=== PATIENT | male | born 1955 | race Caucasian/White ===

== ENCOUNTER 2024-07-25 11:56 | Outpatient (AMB) | payer MEDICARE, MEDICAID, SELFPAY ==
--- NOTE | 2024-07-25 12:05 | AM.OFFWIN_ITS ---
Intake Vital Signs 07/25/24 12:09 Height 5 ft 3 in Weight 230 lb BMI 40.7 BP 132/70 Blood Pressure Location Rt brachial Position Sitting Pulse 80 Pulse Source Pulse Oximeter Temp 98.2 F Temp Source Temporal Artery Scan Pulse Oximetry (%) 97 Intake Visit Reasons: [employer] cellulitis LT leg/ little RT Intake Note: pt is here for cellulitis in left leg and a possibly on right leg too. Patient Tobacco Use Status: Never used Tobacco Allergies olive extract [OLIVE] Allergy (Unknown, Verified 07/25/24 12:06) SWELLING OF TONGUE Do you need a note to return to daycare/school/sports/work: No HPI HPI Comments History of Present Illness Details 60-year-old male that presents for blake rn of cellulitis. Patient was diagnosed with cellulitis at a clinic with treating the health on his lower extremities and prescribed doxycycline b.i.d. times 10 days. He reports minimal improvement still endorses redness on the shins bilaterally in swelling of the lower extremities. Does have a history of some venous insufficiency. Denies fevers or chills PFSH Social History Patient Tobacco Use Status: Never used Tobacco Physical Exam Vital Signs: Last Vital Signs Temp 98.2 F 07/25/24 12:09 Pulse 80 07/25/24 12:09 BP 132/70 07/25/24 12:09 Pulse Ox 97 07/25/24 12:09 BMI result Body Mass Index 40.7 Const General: cooperative, healthy appearing, no acute distress and alert Orientation/consciousness: patient oriented x3 Limitations: no limitations HEENT Head: Yes normal to inspection Ears: hearing grossly normal bilaterally General nose exam: Normal external nose present Resp Effort & Inspection: normal respiratory effort and able to speak in complete sentences Cardio Rate: regular rate Skin General skin exam: no rashes or lesions noted Neuro General: patient oriented x3 Extrem Other: Bilateral pitting edema in the extremities. Erythema on the shins bilaterally warm to the touch. General: Yes normal to inspection Assessment & Plan Assessment & Plan (1) Cellulitis: Code(s): L03.90 - Cellulitis, unspecified Qualifiers: Site of cellulitis: extremity Site of cellulitis of extremity: lower extremity Laterality: unspecified laterality Qualified Code(s): L03.119 - Cellulitis of unspecified part of limb Plan: Signs symptoms to point to cellulitis. Given patient was on doxycycline without much improvement for appropriate duration will switch antibiotic to clindamycin. Medications: New clindamycin HCl 450 mg (3 x 150 mg) PO TID 7 days 63 caps 0RF Coding Level of Care Code New Pt Level 4 (53879) Diagnoses Cellulitis of lower extremity, unspecified laterality L03.119 Site of cellulitis: extremity Site of cellulitis of extremity: lower extremity Laterality: unspecified laterality
[2024-07-25 12:09] VITALS: BP 132/70; PULSE 80; TEMP 36.8; O2SAT 97; BMI 40.7
== END 2024-07-25 13:00 | disposition home or self-care (01) ==
PROVIDERS: Visit Provider Physician Assistant
DX: L03.119 Cellulitis of unspecified part of limb (principal)
CPT/HCPCS: 99204

== ENCOUNTER 2024-09-01 11:59 | Outpatient (AMB) | payer MEDICARE, MEDICAID, SELFPAY ==
--- NOTE | 2024-09-01 12:13 | AM.OFFWIN_ITS ---
Intake Vital Signs 09/01/24 12:15 Height 5 ft 3 in Weight 240 lb BMI 42.5 BP 138/80 Blood Pressure Location Rt brachial Position Sitting Pulse 64 Pulse Source Pulse Oximeter Pulse Oximetry (%) 98 Oxygen Delivery Method Room Air Intake Visit Reasons: EP discharge from eye Intake Note: Patient here for discharge from right eye that has been present for about 2 1/2 weeks. Patient Tobacco Use Status: Never used Tobacco Allergies olive extract [OLIVE] Allergy (Unknown, Verified 09/01/24 12:16) SWELLING OF TONGUE Do you need a note to return to daycare/school/sports/work: No HPI HPI Comments History of Present Illness Details Patient is a 68-year-old male complaining of right eye discharge for the past 2-1/2 weeks. He says he wakes up and it is crusted shut and it keeps weeping all day long. He tells me the crust is a brown color. He tried to get in with his eye doctor but his eye doctor no longer takes his insurance. He denies any visual changes but states that it is giving him a headache because it has been going on for so long. Patient denies use of contacts [facility] Social History Patient Tobacco Use Status: Never used Tobacco Review of Systems Const All systems reviewed & are unremarkable except as noted in HPI and below Physical Exam Vital Signs: Last Vital Signs Pulse 64 09/01/24 12:15 BP 138/80 09/01/24 12:15 Pulse Ox 98 09/01/24 12:15 Oxygen Delivery Method Room Air 09/01/24 12:15 BMI result Body Mass Index 42.5 Const General: cooperative, healthy appearing, comfortable, no acute distress and well developed Orientation/consciousness: patient oriented x3 Limitations: no limitations HEENT Head: Yes normal to inspection Ears: hearing grossly normal bilaterally General nose exam: Normal external nose present Face and sinus: Yes normal facial exam Eyes Alignment and Position: alignment normal and position normal Periorbital: periorbital findings normal Eyelids: Yes eyelid abnormality (Slight swelling on the right ) Conjunctivae: conjunctival abnormal right conjunctival injection and discharge purulent Pupils: Equal, round and reactive pupils present EOM: EOMs intact bilaterally Neck Neck: Yes normal visual inspection and Yes full ROM Resp Effort & Inspection: normal respiratory effort and able to speak in complete sentences Skin General skin exam: no rashes or lesions noted Neuro General: patient oriented x3 Cranial nerves: Yes Equal, round and reactive pupils present Extrem General: Yes normal to inspection Assessment & Plan Assessment & Plan (1) Bacterial conjunctivitis of right eye: Code(s): H10.9 - Unspecified conjunctivitis Plan: Educated patient on how to use the ointment. Plan See above Medications: New erythromycin 0.5 inches ophthalmic-Right QID 3.5 grams 0RF Coding Level of Care Code New Pt Level 3 (61977) Diagnoses Bacterial conjunctivitis of right eye H10.9
[2024-09-01 12:15] VITALS: BP 138/80; PULSE 64; O2SAT 98; BMI 42.5
== END 2024-09-01 12:39 | disposition home or self-care (01) ==
PROVIDERS: PCP Internal Medicine; Visit Provider Physician Assistant
DX: H10.9 Unspecified conjunctivitis (principal)

== ENCOUNTER → 2024-09-01 11:59 | Outpatient (BNVA) | payer MEDICARE, MEDICAID, SELFPAY | PROVIDERS: PCP Internal Medicine | DX: H10.9 Unspecified conjunctivitis (principal) | CPT/HCPCS: 99202 ==

== ENCOUNTER 2025-01-29 12:16 | Outpatient (AMB) | payer MEDICARE, MEDICAID, SELFPAY ==
--- NOTE | 2025-01-29 13:00 | AM.OFFWIN_ITS ---
Intake Vital Signs 01/29/25 13:06 Weight 254 lb BP 140/80 H Blood Pressure Location Lt brachial Position Sitting Pulse 75 Pulse Source Pulse Oximeter Pulse Oximetry (%) 94 Oxygen Delivery Method Room Air Intake Visit Reasons: EP-both legs toes swollen Intake Note: Patient here for bilat feet swelling and rash on left leg. Patient Tobacco Use Status: Never used Tobacco Allergies olive extract [OLIVE] Allergy (Unknown, Verified 01/29/25 13:10) SWELLING OF TONGUE Do you need a note to return to daycare/school/sports/work: No HPI HPI Comments History of Present Illness Details This is a 69-year-old male with past medical history significant for essential hypertension, hyperlipidemia, and type 2 diabetes mellitus who presented to the walk-in clinic complaining of bilateral feet swelling and rash to left leg. Patient states the rash to his left leg has been ongoing for 2-3 months. He states the feet swelling started approximately 2 weeks ago. Patient was seen in an emergency room on 01/15/2025 and he was diagnosed with lower extremity edema and cellulitis. He was given a dose of IV diuretics and IV antibiotics and discharged home on oral furosemide 20 mg daily x 5 days and oral doxycycline 100 mg twice daily x 14 days. Patient states that the rash has persisted. He states that his lower extremity edema did improve with the oral diuretics but he continues to have pedal edema. He denies any fevers or chills. He denies any recent travel or recent surgeries or recent immobilization. He denies any pain/pallor/paresthesias of his feet. He denies any chest pain or shortness of breath. He denies any abdominal pain or nausea/vomiting/diarrhea. He denies any abdominal distention or recent weight gain. [facility] Social History Patient Tobacco Use Status: Never used Tobacco Review of Systems Const All systems reviewed & are unremarkable except as noted in HPI and below Reports no additional complaints Eyes Reports no additional complaints ENT Reports no additional complaints Card Reports no additional complaints Resp Reports no additional complaints GI Reports no additional complaints Reports no additional complaints Musc Reports no additional complaints Skin/Breast Reports system reviewed and no additional complaints, except as documented Neuro Reports no additional complaints Psych Reports no additional complaints Endo Reports no additional complaints Rich/Lymph Reports no additional complaints Aller/Immun Reports no additional complaints Physical Exam Vital Signs: Last Vital Signs Pulse 75 01/29/25 13:06 BP 140/80 H 01/29/25 13:06 Pulse Ox 94 01/29/25 13:06 Oxygen Delivery Method Room Air 01/29/25 13:06 Const Other: Vital signs reviewed. Constitutional: Non-toxic appearing. No acute distress. Well-developed and well-nourished. HEENT: Normocephalic and atraumatic. PERRL/EOMI. Skin: There is chronic venous stasis dermatitis of the left lower extremity without warmth, fluctuance/induration, purulent drainage, or open wounds. There appears to be a smaller similar spot forming on his right lower extremity, as well. There are no ulcers or open wounds. Neck: Full and painless range of motion. No JVD. Cardio: Regular rate and rhythm. No murmurs, gallops, or rubs. 1+ pitting pedal edema bilaterally. He has 2+ DP/PT pulses bilaterally. Pulmonary: No respiratory distress. No accessory muscle usage. Clear to auscultation bilaterally without wheezing, crackles, or rhonchi. Gastrointestinal: Soft, nontender, and nondistended in all 4 quadrants. Normoactive bowel sounds in all 4 quadrants. Musculoskeletal: Normal range of motion in joints throughout the body. No deformity or other signs of injury. Neuro: Alert and oriented x4. Cranial nerves 2-12 grossly intact. No focal deficits appreciated. Psych: Normal mood and affect. Assessment & Plan Assessment & Plan (1) Bilateral lower extremity edema: Code(s): R60.0 - Localized edema (2) Chronic venous stasis dermatitis: Code(s): I87.2 - Venous insufficiency (chronic) (peripheral) Plan 69-year-old male with past medical history significant for essential hypertension, hyperlipidemia, and type 2 diabetes mellitus who presented to the walk-in clinic complaining of bilateral feet swelling and rash to left leg. On physical examination, he has 1+ pitting pedal edema bilaterally and chronic venous stasis dermatitis to the left lower extremity. There is no evidence of cellulitis or abscess at this time. His pedal edema appears to be dependent edema likely related to venous stasis/insufficiency. There is no calf swelling or tenderness to palpation in his calves are equal in circumference so DVT seems less likely at this time. He has 2+ DP/PT pulses and denies pain/pallor/paresthesias of his feet so acute limb ischemia is less likely. Patient was given a prescription for PO furosemide 20 mg daily x 7 days. Recommended elevation of bilateral lower extremities whenever possible as well as avoiding prolonged sitting/standing and increasing physical activity as tolerated. Patient has a follow-up scheduled with his PCP on 02/16/25 and he was recommended to ask about possible cardiology referral for further evaluation. Patient was advised to proceed directly to the emergency room if he were to develop any fever/chills, pain/pallor/paresthesias, color changes/gangrenous changes of his feet, chest pain or shortness of breath, or unilateral/asymmetric lower extremity edema. Patient verbalizes understanding and he is in agreement with the plan. Medications: New furosemide 20 mg PO DAILY 7 tabs 0RF Coding Level of Care Code Est Pt Level 3 (84784) Diagnoses Bilateral lower extremity edema R60.0 Chronic venous stasis dermatitis I87.2
[2025-01-29 13:06] VITALS: BP 140/80; PULSE 75; O2SAT 94
--- OUTSIDE RECORDS SUMMARY | 2025-01-29 14:29 | XMS_ITS | Clinical Summary ---
Author Organization [facility] [address] [place] [address] [place] [address] CRYSTAL Elias [phone] Phone Care Team Providers Care Graphic Designer Name Role Phone Jude Davey MD Primary Care Provider [phone] Allergies Active Allergy Reactions Criticality Noted Date Comments Bee Pollen 02/06/2023 Pedro Oil 07/03/2010 Olives - tongue swells Other 05/13/2010 Seasonal Allergies Other Reaction(s): Runny Nose/Rhinitis Medications fluticasone propionate (FLONASE) 50 mcg/actuation nasal spray Administer 2 sprays into each nostril 1 (one) time each day. 04/16/20 24 Active ammonium lactate (LAC-HYDRIN) 12 % lotion Apply 12 Applications topically at bedtime as needed for dry skin or irritation. Apply to soles of feet daily. At night wear socks to bed 09/03/20 22 Active atorvastatin (LIPITOR) 10 mg tablet Take 1 tablet (10 mg total) by mouth at bedtime. 04/16/20 24 Active diclofenac (VOLTAREN) 1 % topical gel Apply 4 g topically 4 (four) times a day. 04/16/20 24 Active empagliflozin (Jardiance) 10 mg tablet Take 1 tablet (10 mg total) by mouth 1 (one) time each day. 02/18/20 24 Active glipiZIDE (GLUCOTROL XL) 10 mg 24 hr tablet Take 1 tablet (10 mg total) by mouth 2 (two) times a day. 05/18/20 24 Active lisinopriL (PRINIVIL,ZEST RIL) 30 mg tablet Take 1 tablet (30 mg total) by mouth 1 (one) time each day. 04/16/20 24 Active metFORMIN (GLUCOPHAGE) 1,000 mg tablet Take 1 tablet (1,000 mg total) by mouth 2 (two) times a day with meals. 04/16/20 24 Active amLODIPine (NORVASC) 10 mg tablet TAKE 1 TABLET BY MOUTH EVERY DAY 90 tablet 1 12/12/19 25 Active amoxicillin-cl avulanate (Augmentin) 875-125 mg per tablet Take 1 tablet by mouth 2 (two) times a day. 20 tablet 12/31/19 25 Active furosemide (LASIX) 20 mg tablet Take 1 tablet (20 mg total) by mouth 1 (one) time each day for 5 days. 5 each 01/15/20 25 Active lidocaine (LIDODERM) 5 % patchIndicatio ns:Dermatitis Apply 1 patch topically 1 (one) time each day. Remove & discard patch within 12 hours or as directed by . 30 each 2 01/20/20 25 025 Active blood sugar diagnostic (FreeStyle Lite Strips) test strip Use to check blood sugar once daily. 100 each 1 01/27/20 25 Active freestyle (FreeStyle Lancets) 28 gauge lancets Use to check blood sugar once daily. 100 each 1 01/27/20 25 Active FREESTYLE LANCETS MISC Use to test BS once daily. Dx Code E11.69 09/19/20 23 025 Discontinu ed(Reorder ) blood sugar diagnostic (FreeStyle Lite Strips) test strip CHECK BLOOD SUGAR BEFORE BREAKFAST. DX E11.9 04/06/20 24 025 Discontinu ed(Reorder ) doxycycline (VIBRAMYCIN) 100 mg capsule Take 1 capsule (100 mg total) by mouth 2 (two) times a day for 10 days. Take with at least 8 ounces (large glass) of water, do not lie down for 30 minutes after. Administer 2 hours before or after multivitamins, antacids, or other products containing polyvalent cations (i.e., calcium, iron, magnesium, selenium, zinc). 20 capsule 01/15/20 25 025 Active Problems Problem Noted Date Diagnosed Date Morbid obesity with BMI of 40.0-44.9, adult 09/03 BPH (benign prostatic hyperplasia) 04/02/2024 Microalbuminuria 09/13/2022 Hypertriglyceridemia 09/11/2022 Stage 3a chronic kidney disease 10/25/2021 Nocturnal hypoxemia 04/18/2021 PLMD (periodic limb movement disorder) 9 Obstructive sleep apnea 04/05/2019 Overview (09/30/2024): [facility] Home Polysomnogram: Date 03/30/2019; Wt 240#; BMI 43; MOOSE 22, AI 5; HI 17; Unclassified apneas 26; Obstructive apneas 12; Central apneas 7; Mixed apneas 1; hypopneas 170; average oxygen saturation 93% (lowest 68% with saturations <88% for 5% or more of study) [facility] Polysomnogram: Date 06/08/2019; Wt 240#; BMI 34; SE 63%; SM 75%; REM 25%; RDI 28 (AHI 24), REM (RDI 67 - AHI 66), Central apneas 0; Obstructive apneas 0; Mixed apneas 0; hypopneas 99; RERAs 19; average oxygen saturation 92% (lowest 71% - with saturations <88% for 5% or more of study); PLMs 51.- 06/08/2019 Prestudy ESS 5; 0/4 RLS symptoms. [facility] Polysomnogram treatment study. Date 08/06/2019. Wt 246#; BMI 44; SE 27 % SM 40 %; spent 10 % of the study in REM. Inconclusive treatment study as patient was not able to sleep for more than 44 minutes and decided to terminate the study. Recommendations for repeat titration versus auto CPAP given. Daytime mask fitting and reintroduction of CPAP was also suggested. Pre-study ESS 3. 0/[address] [facility] Home Sleep Apnea Test: Date 04/09/2021; Wt 239#; BMI 42; MOOSE (AHI) 25, AI 3; HI 22; Unclassified apneas 0; Obstructive apneas 19; Central apneas 0; Mixed apneas 0; hypopneas 136; average oxygen saturation 90% (lowest 65% with saturations <88% for 5% or more of study) - Obstructive Sleep Apnea - moderate overall and severe in REM; all hypopneas; with sleep related hypoventilation by 2019 polysomnogram. - Obstructive Sleep Apnea - moderate; mostly hypopneas and unclassified apneas; with sleep related hypoventilation by 2018 home sleep apnea test. - Obstructive Sleep Apnea - moderate; mostly hypopneas with some obstructive apneas; with sleep related hypoventilation by 2020 home sleep apnea test. 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 Should not get rpt PPD GERD (gastroesophageal reflux disease) 3 Gout 02/05/2013 Memory loss 01/30/2007 Encounters Date Type Department Care Team Description 01/20/2025 1:00 PM EST Office Visit Orthopedic [place] [phone] [phone] Javi Solorio DPM Dermatitis (Primary Dx); Cellulitis of left leg; Peripheral venous insufficiency 01/15/2025 11:00 AM EST - 01/15/2025 3:17 PM EST [facility] [address] [place] [phone] Kamron Julien MD Lymphedema of both lower extremities (Primary Dx); Cellulitis, unspecified cellulitis site Discharge Disposition: Home or Self Care 01/14/2025 1:15 PM EST Office Visit [place] [address] [phone] Javi Soolrio DPM Cellulitis of left leg (Primary Dx) 12/31/2024 1:15 PM EST Office Visit [facility] [address] [phone] Javi Solorio DPM Cellulitis of left leg (Primary Dx); Dermatophytosis of nail; Pain in toe of right foot; Pain in toe of left foot; Type II diabetes mellitus with peripheral circulatory disorder ([facility]); Diabetic mononeuropathy simplex ([facility]); Peripheral venous insufficiency; Acquired hallux valgus of left foot; Acquired hallux valgus of right foot; Corns and callosities from Last 3 Months Immunizations Name Administration Dates Next Due Must See [place] SARS-CoV-2 COVID -19, vector-nr, [id number], preservative free 02/28/2021 Surgical History Surgery Date Site/Laterality Comments OTHER SURGICAL HISTORY age 3 PROCEDURE: HISTORY OTHER; COMMENT: removed cyst of eyelid Medical History Medical History Date Comments Esophageal reflux DX:Esophageal reflux Type II or unspecified type diabetes mellitus without mention of complication, not stated as uncontrolled 06/02/2015 DX:Type II or unspecified ty pe diabetes mellitus without mention of complication, not stated as uncontrolled Essential hypertension, benign 06/02/2015 D X:Essential hypertension, benign Type II or unspecified type diabetes mellitus without mention of complication, uncontrolled 06/02/2015 DX:Type II or unspecified t ype diabetes mellitus without mention of complication, uncontrolled Positive PPD 06/02/2015 DX:Positive PPD; COMMENT: 40 years ago , treated for a year. Was told not to have rpt PPD in the future. History of traumatic brain injury 12/17/2014 DX:History of traumatic brain injury Morbid obesity ([facility]) 11/10/2014 DX:Morb id obesity ([facility]); COMMENT: BMI 42.74 on 02/04/2013 GERD (gastroesophageal reflu x disease) 02/05/2013 DX:GERD (gastroesophageal re flux disease) Gout 02/05/2013 DX:Gout Memory loss 01/30/2007 DX:Memory loss Family History Medical History Relation Name Comments Brain cancer Brother 1 Breast cancer Sister 1 Blindness Neg Hx Cataracts Neg Hx Glaucoma Neg Hx Macular degeneration Neg Hx Strabismus Neg Hx Relation Name Status Comments Brother 1 Brother 2 Brain CA Brother 3 Alive Father emphysema Mother hernia Sister 1 Sister 2 unknown Sister 3 kidney Social History Tobacco Use Types Packs/Day Years Used Date Smoking Tobacco: Never Smokeless Tobacco: Never Alcohol Use Standard Drinks/Week Comments No 0 (1 standard drink = 0.6 oz pur e alcohol) Sex and Gender Information Value Date Recorded Sex Assigned at Not on file Legal Sex Male 3:07 AM EST Gender Identity Not on file Sexual Orientation Not on file Obstetrics History Last Filed Vital Signs Vital Sign Reading Time Taken Comments Blood Pressure 153/78 01/15/2025 2:39 PM EST Pulse 81 01/15/2025 2:39 PM EST Temperature 36.6 ??C (97.9 ??F) 01/15/2025 2:39 PM ES T Respiratory Rate 18 01/15/2025 2:39 PM EST Oxygen Saturation 98% 01/15/2025 2:39 PM EST Inhaled Oxygen Concentration - - Weight 111 kg (245 lb) 01/15/2025 9:02 AM EST Height 160 cm (5' 3 ) 01/15/2025 9:02 AM EST Body Mass Index 43.4 01/15/2025 9:02 AM EST Plan of Treatment Upcoming Encounters Date Type Department Care Team (Late st Contact Info) Description 02/10/2025 1:30 PM EDT Office Visit Orthopedic Surgery [place] [phone] [phone] Javi Solorio DPM [address] [address] 02/16/2025 1:30 PM EDT Office Visit Adult [address] [phone] Natasha Luna PA [address] [place] [address] 03/15/2025 2:30 PM EDT Office Visit Vascular Surgery [facility] [address] [phone] Alma Cruz PA [address] [address] 03/18/2025 3:00 PM EDT Office Visit Orthopedic Surgery [place] [address] [phone] Javi Solorio DPM [address] [address] 09/28/2025 10:45 AM EDT Office Visit [facility] [address] [place] [phone] Willam Ibarra MD [address] [facility] [address] [place] [address] Health Maintenance Due Date Last Done Comments Diabetes: Annual Foot Exam 1965 DTaP,Tdap,and Td Vaccines (1 - Tdap) 1974 Pneumococcal Vaccine: 50+ Years (1 of 2 - PCV) 1974 Zoster Vaccines (1 of 2) 2005 RSV Immunization Patients 60 + Years Old (1 - Risk 60-74 years 1-dose series) 2015 Social Influencers of Health Screening 11/10/2022 COVID-19 Vaccine (3 - 2023-2 5 season) 2024 03/09/2022, 02/28/2021 Influenza Vaccine (#1) 2024 Diabetes: Blood Sugar Contro l Test (HGBA1C) 08/06/2024 02/04/2024 Depression Screening 10/15/2024 10/15/2023 Medicare Annual Wellness Visit 10/15/2024 10/15/2023 Diabetes: Annual Retina Eye Exam 10/30/2024 10/30/2023 Falls Risk Assessment 04/16/2025 04/16/2024 Diabetes: Annual Urine Albumin-Creatinine Ratio (uACR) 04/20/2025 04/20/2024 Diabetes: Annual GFR (Glomerular Filtration Rate) 01/15/2026 01/15/2025, 04/20/2024, 02/04/2024 Hypertension/CHF/CAD Annual BMP Blood Test 01/15/2026 01/15/2025, 04/20/2024, 02/04/2024 Cholesterol Screening (Lipid Panel) 02/03/2029 02/04/2024 Colorectal Cancer Screening: Colonoscopy 01/06/2034 01/06/2024 Hepatitis C Screening Completed 12/18/2014 HIB Vaccines Aged Out No longer eligi ble based on patient's age to complete this topic HPV Vaccines Aged Out No longer eligi ble based on patient's age to complete this topic Hepatitis A Vaccines Aged Out No long er eligible based on patient's age to complete this topic Hepatitis B Vaccines Aged Out No long er eligible based on patient's age to complete this topic IPV Vaccines Aged Out No longer eligi ble based on patient's age to complete this topic MMR Vaccines Aged Out No longer eligi ble based on patient's age to complete this topic Meningococcal ACWY Vaccine Aged Out N o longer eligible based on patient's age to complete this topic Meningococcal B Vacine Aged Out No lo nger eligible based on patient's age to complete this topic RSV Immunization Patients Under 20 months Aged Out No longer eligible b ased on patient's age to complete this topic Varicella Vaccines Aged Out No longer eligible based on patient's age to complete this topic Procedures Procedure Name Priority Date/Time Associated Diagnosis Comments C-REACTIVE PROTEIN STAT Add-on 01/15/2025 10 :15 AM EST SEDIMENTATION RATE STAT Add-on 01/15/2025 10 :15 AM EST CBC WITH AUTO DIFFERENTIAL STAT 01/15/2025 10:15 AM EST BASIC METABOLIC PANEL STAT 01/15/2025 10:15 AM EST CBC AND DIFFERENTIAL STAT 01/15/2025 10:15 AM EST URINE ALBUMIN CREATININE RATIO Routine 04/20/2024 FALLS RISK ASSESSMENT Routine 04/16/2024 HEMOGLOBIN A1C Routine 02/04/2024 LIPID PANEL Routine 02/04/2024 COLONOSCOPY Routine 01/06/2024 DIABETES EYE EXAM Routine 10/30/2023 DEPRESSION SCREENING Routine 10/15/2023 HEPATITIS C SCREENING Routine 12/18/2014 from Last 3 Months or Most Recently Relevant to Health Maintenance Results * (ABNORMAL) CBC auto differential (01/15/2025 10:15 AM EST) [facility] WBC 10.0 4.8 - 10.8 K/mcL LAB HEMETOLOGY METHOD 01/15/2025 10:44 AM [facility] RBC 4.50 4.50 - 5.50 M/mcL LAB HEMETOLOGY METHOD 01/15/2025 10:44 AM [facility] Hemoglobin 12.7(L) 13.5 - 17.5 g/dL LAB HEMETOLOGY METHOD 01/15/2025 10:44 AM [facility] Hematocrit 39.5(L) 42.0 - 54.0 % LAB HEMETOLOGY METHOD 01/15/2025 10:44 AM [facility] MCV 87.4 79.0 - 98.0 FL LAB HEMETOLOGY METHOD 01/15/2025 10:44 AM [facility] MCH 28.1 27.0 - 32.0 pcg LAB HEMETOLOGY METHOD 01/15/2025 10:44 AM [facility] MCHC 32.2 32.0 - 37.0 g/dL LAB HEMETOLOGY METHOD 01/15/2025 10:44 AM [facility] RDW 14.4 11.0 - 15.0 % LAB HEMETOLOGY METHOD 01/15/2025 10:44 AM [facility] Platelets 226 130 - 400 K/mcL LAB HEMETOLOGY METHOD 01/15/2025 10:44 AM [facility] MPV 9.2 7.0 - 11.0 FL LAB HEMETOLOGY METHOD 01/15/2025 10:44 AM [facility] NRBC 0.0 <1.0 % LAB HEMETOLOGY METHOD 01/15/2025 10:44 AM [facility] NRBC Absolute 0.00 <0.10 K/mcL LAB HEMETOLOGY METHOD 01/15/2025 10:44 AM [facility] Neutrophils Relative 61.0 % LAB HEMETOLOGY METHOD 01/15/2025 10:44 AM [facility] Lymphocytes Relative 28.3 % LAB HEMETOLOGY METHOD 01/15/2025 10:44 AM [facility] Monocytes Relative 6.3 % LAB HEMETOLOGY METHOD 01/15/2025 10:44 AM [facility] Eosinophils Relative 3.5 % LAB HEMETOLOGY METHOD 01/15/2025 10:44 AM [facility] Basophils Relative 0.4 % LAB HEMETOLOGY METHOD 01/15/2025 10:44 AM [facility] Immature Granulocytes Relative 0.5 % LAB HEMETOLOGY METHOD 01/15/2025 10:44 AM [facility] Neutrophils Absolute 6.08 1.50 - 7.00 K/mcL LAB HEMETOLOGY METHOD 01/15/2025 10:44 AM [facility] Lymphocytes Absolute 2.82 1.00 - 5.00 K/mcL LAB HEMETOLOGY METHOD 01/15/2025 10:44 AM [facility] Monocytes Absolute 0.63 0.20 - 1.00 K/mcL LAB HEMETOLOGY METHOD 01/15/2025 10:44 AM [facility] Eosinophils Absolute 0.35 0.00 - 0.50 K/mcL LAB HEMETOLOGY METHOD 01/15/2025 10:44 AM [facility] Basophils Absolute 0.04 0.00 - 0.20 K/mcL LAB HEMETOLOGY METHOD 01/15/2025 10:44 AM [facility] Immature Granulocytes Absolute 0.05(H) 0.00 - 0.03 K/mcL LAB HEMETOLOGY METHOD 01/15/2025 10:44 AM [facility] Blood Venous blood specimen / Unknown Venipuncture / Unknown 01/15/2025 10:15 AM EST 01/15/2025 10:29 AM EST Kamron Julien MD LAB BLOOD ORDERABLES Final Result Performing Organization Address [facility]/ZIP Co de Phone Number [facility] [address] [place] [address], [place] [phone] * (ABNORMAL) Sedimentation rate (01/15/2025 10:15 AM EST) Sed Rate 50(H) 0 - 20 mm/hr LAB HEMETOLOGY METHOD 01/15/2025 12:56 PM EST [facility] Blood Venous blood specimen / Unknown Venipuncture / Unknown 01/15/2025 10:15 AM EST 01/15/2025 10:29 AM EST Kamron Julien MD LAB BLOOD ORDERABLES Final Result Performing Organization Address [facility] Co de Phone Number [facility] [address] [place] [address], [place] [phone] * (ABNORMAL) C-reactive protein (01/15/2025 10:15 AM EST) C-Reactive Protein 0.84(H) <=0.50 mg/dL LAB CHEMISTRY METHOD 01/15/2025 12:17 PM EST [facility] Blood Venous blood specimen / Unknown Venipuncture / Unknown 01/15/2025 10:15 AM EST 01/15/2025 10:29 AM EST Kamron Julien MD LAB BLOOD ORDERABLES Final Result Performing Organization Address [facility]/ZIP Co de Phone Number [facility] [address] [place] [address], [place] [phone] * (ABNORMAL) Basic metabolic panel (01/15/2025 10:15 AM EST) Sodium 137 133 - 145 mmol/L LAB CHEMISTRY METHOD 01/15/2025 11:02 AM [facility] Potassium 4.8 3.5 - 5.5 mmol/L LAB CHEMISTRY METHOD 01/15/2025 11:02 AM [facility] Chloride 104 96 - 110 mmol/L LAB CHEMISTRY METHOD 01/15/2025 11:02 AM [facility] CO2 26 21 - 32 mmol/L LAB CHEMISTRY METHOD 01/15/2025 11:02 AM [facility] Anion Gap 7 3 - 11 LAB CHEMISTRY METHOD 01/15/2025 11:02 AM [facility] Glucose 201(H) 70 - 100 mg/dL LAB CHEMISTRY METHOD 01/15/2025 11:02 AM [facility] BUN 13 5 - 25 mg/dL LAB CHEMISTRY METHOD 01/15/2025 11:02 AM [facility] Creatinine 1.32(H) 0.70 - 1.30 mg/dL LAB CHEMISTRY METHOD 01/15/2025 11:02 AM [facility] eGFR 58(L) >=60 mL/min/1. 73m2 LAB CHEMISTRY METHOD 01/15/2025 11:02 AM [facility] Comment:Calculation based on the??Chronic Kidney Disease Epidemiology Collaboration (CKD-EPI) equation refit??without adjustment for race. BUN/Creatinine Ratio 9.8 LAB CHEMISTRY METHOD 01/15/2025 11:02 AM [facility] Calcium 9.3 8.5 - 10.5 mg/dL LAB CHEMISTRY METHOD 01/15/2025 11:02 AM [facility] Blood Venous blood specimen / Unknown Venipuncture / Unknown 01/15/2025 10:15 AM EST 01/15/2025 10:29 AM EST Kamron Julien MD LAB BLOOD ORDERABLES Final Result [facility] [address] [place] [address], [place] [phone] * Urine Albumin Creatinine Ratio (04/20/2024) [facility] Urine Albumin Creatinine Ratio Abstracted Result [facility] Provider HEALTH MAINTENANCE Final Result * Falls Risk Assessment (04/16/2024) [facility] Falls Risk Assessment Abstracted Result [facility] HEALTH MAINTENANCE Final Result * (ABNORMAL) Hemoglobin A1c (02/04/2024) [facility] Hemoglobin A1C 6.8(A) <=6.5 % Blood Venous blood specimen / Unknown Result [facility] Provider LAB BLOOD ORDERABLES Kristina l Result * (ABNORMAL) Lipid panel (02/04/2024) [facility] LDL/HDL Ratio 4 0 - 4 Triglycerides 187(A) 0 - 150 mg/dL Cholesterol 167 0 - 200 mg/dL HDL 41 >=40 mg/dL LDL Cholesterol 89 0 - 100 mg/dL Blood Venous blood specimen / Unknown Result [facility] Provider LAB BLOOD ORDERABLES Kristina l Result * Colonoscopy (01/06/2024) [facility] Colonoscopy No Interpretation , Abstracted Comment:Postponed until 2024 by Edie Cox (Patient Refused) 11/05/2011 Refused - referred, spoke to GI nurse, declined. Anatomical Region Laterality Modality Other Result [facility] Provider HEALTH MAINTENANCE Final Result * Diabetes Eye Exam (10/30/2023) [facility] Diabetes: Annual Retina Eye Exam Abstracted Result [facility] Provider HEALTH MAINTENANCE Final Result * Depression Screening (10/15/2023) Depression Screening Abstracted us Historical Provider HEALTH MAINTENANCE Final Result * Hepatitis C Screening (12/18/2014) Hepatitis C Screening Abstracted us Historical Provider HEALTH MAINTENANCE Final Result from Last 3 Months or Most Recently Relevant to Health Maintenance [place] [place] [phone] MEDICARE [place]ICA[place] - [place] Advance Directives Documents on File Type Date Recorded Patient Supervisor Adult Education Expl anation Health Care Decision (hx) 07/31/2022 AD ONEILL DIRECTIVE Health Care Decision (hx) 07/31/2022 AD ONEILL DIRECTIVE Health Care Decision (hx) 07/31/2022 AD ONEILL DIRECTIVE Health Care Decision (hx) 06/10/2017 AD ONEILL DIRECTIVE Health Care Decision (hx) 06/10/2017 AD ONEILL DIRECTIVE Health Care Decision (hx) 06/10/2017 AD ONEILL DIRECTIVE Care Teams Graphic Designer Relationship Specialty Start Date End Date Jude Davey MD [address] [place] [id number] PCP - General Internal Medicine 10/06/24
--- OUTSIDE RECORDS SUMMARY | 2025-01-29 14:29 | XMS_ITS | Encounter Summary ---
Author Organization [facility] Address [address] [place] [address] Care Team Providers Care Sous Chef Name Role Phone Jude Davey MD Primary Care Provider [phone] Reason for Visit * Reason Comments Cellulitis Encounter Details Date Type Department Care Team (Late st Contact Info) Description 01/20/2025 1:00 PM EST Office Visit Orthopedic Surgery - [place] [id number] [phone] Javi Solorio DPM [address] [place] [address] Dermatitis (Primary Dx); Cellulitis of left leg; Peripheral venous insufficiency Social History Tobacco Use Types Packs/Day Years Used Date Smoking Tobacco: Never Smokeless Tobacco: Never Alcohol Use Standard Drinks/Week Comments No 0 (1 standard drink = 0.6 oz pur e alcohol) Sex and Gender Information Value Date Recorded Sex Assigned at Not on file Legal Sex Male 3:07 AM EST Gender Identity Not on file Sexual Orientation Not on file documented as of this encounter Ordered Prescriptions Prescription Sig Dispense Quantity Refills Last Filled Start Date End Date lidocaine (LIDODERM) 5 % patchIndications:D ermatitis Apply 1 patch topically 1 (one) time each day. Remove & discard patch within 12 hours or as directed by . 30 each 2 01/20/2025 documented in this encounter Progress Notes * Javi Solorio DPM - 01/20/2025 1:00 PM EST Last MD visit: 08/18/2024 Bethany PHOENIX S Patient presents today for evaluation he with the ED he was worked up found to have relative normalleukocytosis was started on diuretic doxycycline and discharged has been doing well at this time does note that his legs very itchy ROS: GENERAL: Pt denies nausea, fever, vomiting, chills, or shortness of breath. Pt in NAD. CARDIOLOGY: pt denies chest pain, palpitations LUNGS: pt denies shortness of breath MUSCULOSKELETAL: See HPI, otherwise no joint pain or swelling, back pain, or muscle pain. 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.29 Benign essential hypertension I10 Shortness of breath R06.02 Bronchospasm J98.01 Obstructive sleep apnea moderate AHI 25 (2019 study AHI 24; severe in REM AHI 66 with nocturnal hypoxia G47.33 PLMD (periodic limb movement disorder) G47.61 Nocturnal hypoxemia G47.34 Stage 3a chronic kidney disease ([facility]) N18.31 Hypertriglyceridemia E78.1 Microalbuminuria R80.9 BPH (benign prostatic hyperplasia) N40.0 SOCIAL HISTORY: Social History Tobacco Use Smoking status: Never Smokeless tobacco: Never Substance Use Topics Alcohol use: No Comment: 06/02/15 - none in 4 months; used to drink beer on weekends History Last Reviewed by Dayana Araya M.A. on 08/18/2024 at 1:32 PM Sections Reviewed Tobacco ACTIVE MEDICATIONS: Current Outpatient Medications Medication Sig Dispense Refill cephALEXin (KEFLEX) 500 MG capsule Take 1 Capsule by mouth 3 times daily for 10 days. 30 Capsule 0 omeprazole (PRILOSEC) 20 MG capsule Take 1 Capsule by mouth daily. 90 Capsule 1 glipiZIDE (GLUCOTROL) 10 MG 24 hr tablet Take 1 Tablet by mouth 2 times daily. 180 Tablet 1 lisinopril (PRINIVIL,ZESTRIL) 30 MG tablet Take 1 Tablet by mouth daily. 90 Tablet 1 metformin (GLUCOPHAGE) 1000 MG tablet Take 1 Tablet by mouth 2 times daily (with meals). 180 Tablet1 atorvastatin (LIPITOR) 10 MG tablet Take 1 Tablet by mouth at bedtime. 90 Tablet 1 fluticasone 50 MCG/ACT nasal spray USE 2 SPRAYS IN EACH NOSTRIL ONCE DAILY 48 g 3 amlodipine (Norvasc) 10 MG tablet Take 1 Tablet by mouth daily for 180 days. 90 Tablet 1 Diclofenac Sodium (Voltaren) 1 % Gel Apply 4 g topically 4 times daily. 60 g 0 Glucose Blood (FREESTYLE LITE) Strip CHECK BLOOD SUGAR BEFORE BREAKFAST. DX E11.9 100 Strip 5 Empagliflozin (Jardiance) 10 MG Tab Take 10 mg by mouth daily. 30 Tablet 6 FreeStyle Lancets Misc Use to test BS once daily. Dx Code E11.69 100 Each 5 ammonium lactate (LAC-HYDRIN) 12 % lotion Apply to soles of feet daily. At night wear socks to bed 400 g 2 No current facility-administered medications for this visit. ALLERGIES: [place] oil and Seasonal allergies PHYSICAL EXAM: Height 5' 3 (1.6 m), weight 235 lb (106.6 kg). Estimated body mass index is 41.63 kg/m?? as calculated from the following: Height as of this encounter: 5' 3 (1.6 m). Weight as of this encounter: 235 lb (106.6 kg). BMI PLAN BMI BMI is greater than 25.0 (above the normal range) - see Plan PODIATRIC EXAMINATION: GENERAL: Patient appears well nourished, with NAD. VASCULAR: Dorsalis pedis pulses are 2/4 bilaterally and Posterior tibial pulses are0 out of 4 right0-4 left . Capillary filling time within normal limits the digits. No pallor on elevation or rubor on dependency. Diminished hair growth. +4 pitting edema varicosities. Denies rest pain or claudication pain. NEUROLOGICAL: Sharp/dull sensation intact, protective sensation intact 10/10 with 5.07 semmes marcus bilaterally, vibratory sensation with tuning fork intact to the tibial tuberosity. ORTHOPEDIC: Good muscle strength 5/5 of all flexors and extensors. Dorsi flexion of ankle ,10 degrees, plantar flexion WNL. No muscle atrophy. DERMATOLOGICAL:. Blanchable redness to left lower extremity BIOMECHANICS: STJ ROM wnl, MTJ ROM wnl, 1st MPJ ROM limited bilaterally. Worsening hammertoe of theleft fifth digit with worsening pain on palpation callus remission dorsal lateral with significant nail atrophy and callus formation intra nail subungual IMAGING: N/A IMPRESSION: 1. Dermatitis 2. Cellulitis of left leg 3. Peripheral venous insufficiency PLAN: Patient should finish course of doxycycline as prescribed Continue take Lamisil Labs reviewed Discussed with patient he is likely having severe lipodermatosclerosis with dermatitis of his left lower extremity a low-grade steroid treatment be pursued after he finishes course of antibiotics Lidocaine patches prescribed to help assist in itchiness associated with dermatitis Follow-up in 2 weeks Javi Solorio DPM documented in this encounter Plan of Treatment Upcoming Encounters Date Type Department Care Team (Late st Contact Info) Description 02/10/2025 1:30 PM EDT Office Visit Orthopedic Surgery [place] [phone] [phone] Javi Solorio DPM [address] [address] 02/16/2025 1:30 PM EDT Office Visit Adult Medicine [address] [phone] Natasha Luna PA [address] [place] [id number] 03/15/2025 2:30 PM EDT Office Visit Vascular Surgery [facility] [address] [facility] [address] [place] [address] Alma Cruz PA [address] [address] 03/18/2025 3:00 PM EDT Office Visit Orthopedic Surgery [place] [address] 175 [facility] [address] [place] [address] Javi Solorio, DPM 175 [facility] [address] [place] [address] 09/28/2025 10:45 AM EDT Office Visit [facility] [address] [place] [address] Willam Ibarra MD [address] [phone] documented as of this encounter Visit Diagnoses Diagnosis Dermatitis- Primary Contact dermatitis and other eczema, due to unspecified cause Cellulitis of left leg Peripheral venous insufficiency Unspecified venous (peripheral) insufficiency documented in this encounter Care Teams Sous Chef Relationship Specialty Start Date End Date Jude Davey MD [address] [place] [phone] PCP - General Internal Medicine 10/06/24 documented as of this encounter
--- OUTSIDE RECORDS SUMMARY | 2025-01-29 14:29 | XMS_ITS | Encounter Summary ---
Author Organization [facility] Address [address] [place] [address] Care Team Providers Care Director Software Development Name Role Phone Jude Davey MD Primary Care Provider [phone] Reason for Visit * Reason Comments Leg Pain Encounter Details Date Type Department Care Team (Late st Contact Info) Description 01/15/2025 11:00 AM EST - 01/15/2025 3:17 PM EST Emergency [facility] Emergency [address] [place] [phone] Kamron Julien MD [address] [address] Lymphedema of both lower extremities (Primary Dx); Cellulitis, unspecified cellulitis site Discharge Disposition: Home or Self Care Social History Tobacco Use Types Packs/Day Years [...] on file documented as of this encounter Last Filed Vital Signs Vital Sign Reading [...] Mass Index 43.4 01/15/2025 9:02 AM EST documented in this encounter Discharge Instructions * Discharge Instructions* SILVIANO Gerber - 01/15/2025 2:30 PM EST Follow-up next week with Dr. Ziegler documented in this encounter Medications at Time of Discharge amLODIPine (NORVASC) 10 mg tablet TAKE 1 TABLET BY MOUTH EVERY DAY 90 tablet 1 12/12/2024 ammonium lactate (LAC-HYDRIN) 12 % lotion Apply 12 Applications topically at bedtime as needed for dry skin or irritation. Apply to soles of feet daily. At night wear socks to bed 09/03/2022 amoxicillin-clav ulanate (Augmentin) 875-125 mg per tablet Take 1 tablet by mouth 2 (two) times a day. 20 tablet 12/31/2024 atorvastatin (LIPITOR) 10 mg tablet Take 1 tablet (10 mg total) by mouth at bedtime. 04/16/2024 diclofenac (VOLTAREN) 1 % topical gel Apply 4 g topically 4 (four) times a day. 04/16/2024 empagliflozin (Jardiance) 10 mg tablet Take 1 tablet (10 mg total) by mouth 1 (one) time each day. 02/18/2024 fluticasone propionate (FLONASE) 50 mcg/actuation nasal spray Administer 2 sprays into each nostril 1 (one) time each day. 04/16/2024 furosemide (LASIX) 20 mg tablet Take 1 tablet (20 mg total) by mouth 1 (one) time each day for 5 days. 5 each 01/15/2025 glipiZIDE (GLUCOTROL XL) 10 mg 24 hr tablet Take 1 tablet (10 mg total) by mouth 2 (two) times a day. 05/18/2024 lisinopriL (PRINIVIL,ZESTRI L) 30 mg tablet Take 1 tablet (30 mg total) by mouth 1 (one) time each day. 04/16/2024 metFORMIN (GLUCOPHAGE) 1,000 mg tablet Take 1 tablet (1,000 mg total) by mouth 2 (two) times a day with meals. 04/16/2024 doxycycline (VIBRAMYCIN) 100 mg capsule Take 1 capsule (100 mg total) by mouth 2 (two) times a day for 10 days. Take with at least 8 ounces (large glass) of water, do not lie down for 30 minutes after. Administer 2 hours before or after multivitamins, antacids, or other products containing polyvalent cations (i.e., calcium, iron, magnesium, selenium, zinc). 20 capsule 01/15/2025 5 blood sugar diagnostic (FreeStyle Lite Strips) test strip CHECK BLOOD SUGAR BEFORE BREAKFAST. DX E11.9 04/06/2024 5 FREESTYLE LANCETS [facility] Use to test BS once daily. Dx Code E11.69 09/19/2023 5 documented as of this encounter Ordered Prescriptions Prescription Sig Dispense Quantity Refills Last Filled Start Date End Date furosemide (LASIX) 20 mg tablet Take 1 tablet (20 mg total) by mouth 1 (one) time each day for 5 days. 5 each 01/15/2025 doxycycline (VIBRAMYCIN) 100 mg capsule Take 1 capsule (100 mg total) by mouth 2 (two) times a day for 10 days. Take with at least 8 ounces (large glass) of water, do not lie down for 30 minutes after. Administer 2 hours before or after multivitamins, antacids, or other products containing polyvalent cations (i.e., calcium, iron, magnesium, selenium, zinc). 20 capsule 01/15/2025 5 documented in this encounter Discharge Disposition Disposition Code Departure Means Destination Comment s Home or Self Care documented in this encounter Progress Notes * Balbina Jung RN - 01/15/2025 8:59 AM EST Pt presents to ed c/o lle redness, pain, and swelling, has been on oral antibiotics for cellulitis without improvement. Pt is type2 dm, non insulin dependent. Pt denies fever/chills., Pt is aox3 and ambulatory. Area not visualized from fec. * SILVIANO Gerber - 01/15/2025 8:57 AM EST Emergency Medicine Note Patient Name: Clifford Cerda Initial Evaluation: 01/15/2025 : 1955 Patient's PCP: Jude Davey MD Emergency Physician: SILVIANO Gerber History of Present Illness Chief Complaint: Chief Complaint Patient presents with Leg Pain HPI: 69-year-old male here today sent in by ziegler . Patient has left lower extremity redness swelling concern for infection on Augmentin. Patient had been complaining of recent times getting worse. Gradual onset of symptoms. History of diabetes. History of lower extremity lymphedema. ROS: I have performed a ROS with the pertinent positives and negatives documented in the history ofpresent illness. 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 Was told not to have rpt PPD in the future. Type II or unspecified type diabetes mellitus without mention of complication, not stated as uncontrolled 06/02/2015 DX:Type II or unspecified type diabetes mellitus without mention of complication, not stated as uncontrolled Type II or unspecified type diabetes mellitus without mention of complication, uncontrolled 06/02/2015 DX:Type II or unspecified type diabetes mellitus without mention of complication, uncontrolled Past Surgical History: Procedure Laterality Date OTHER SURGICAL HISTORY age 3 PROCEDURE: HISTORY OTHER; COMMENT: removed cyst of eyelid Social History Tobacco Use Smoking status: Never Smokeless tobacco: Never Substance Use Topics Alcohol use: No Drug use: No Family History Problem Relation Name Age of Onset Brain cancer Brother Breast cancer Sister Blindness Neg Hx Cataracts Neg Hx Glaucoma Neg Hx Macular degeneration Neg Hx Strabismus Neg Hx is allergic to bee pollen, olive oil, and other. No current facility-administered medications on file prior to encounter. Current Outpatient Medications on File Prior to Encounter Medication Sig Dispense Refill amLODIPine (NORVASC) 10 mg tablet TAKE 1 TABLET BY MOUTH EVERY DAY 90 tablet 1 ammonium lactate (LAC-HYDRIN) 12 % lotion Apply 12 Applications topically at bedtime as needed for dry skin or irritation. Apply to soles of feet daily. At night wear socks to bed amoxicillin-clavulanate (Augmentin) 875-125 mg per tablet Take 1 tablet by mouth 2 (two) times a day. 20 tablet 0 atorvastatin (LIPITOR) 10 mg tablet Take 1 tablet (10 mg total) by mouth at bedtime. blood sugar diagnostic (FreeStyle Lite Strips) test strip CHECK BLOOD SUGAR BEFORE BREAKFAST. DX E11.9 diclofenac (VOLTAREN) 1 % topical gel Apply 4 g topically 4 (four) times a day. empagliflozin (Jardiance) 10 mg tablet Take 1 tablet (10 mg total) by mouth 1 (one) time each day. fluticasone propionate (FLONASE) 50 mcg/actuation nasal spray Administer 2 sprays into each nostril1 (one) time each day. FREESTYLE LANCETS [facility] Use to test BS once daily. Dx Code E11.69 glipiZIDE (GLUCOTROL XL) 10 mg 24 hr tablet Take 1 tablet (10 mg total) by mouth 2 (two) times a day. lisinopriL (PRINIVIL,ZESTRIL) 30 mg tablet Take 1 tablet (30 mg total) by mouth 1 (one) time each day. metFORMIN (GLUCOPHAGE) 1,000 mg tablet Take 1 tablet (1,000 mg total) by mouth 2 (two) times a day with meals. Physical Exam ED Triage Vitals [01/15/25 0902] Temp Heart Rate Resp BP 36.5 ??C (97.7 ??F) 83 18 (!) 141/86 SpO2 Temp Source Heart Rate Source Patient Position 98 % Oral Monitor Sitting BP Location FiO2 (%) Left arm -- Physical Exam Vitals and nursing note reviewed. Constitutional: Appearance: Normal appearance. HENT: Head: Normocephalic. Nose: Nose normal. Eyes: Extraocular Movements: Extraocular movements intact. Cardiovascular: Rate and Rhythm: Normal rate and regular rhythm. Pulmonary: Effort: Pulmonary effort is normal. Breath sounds: Normal breath sounds. Musculoskeletal: General: Swelling present. Cervical back: Normal range of motion. Right lower leg: Edema present. Left lower leg: Edema present. Comments: Left lower extremity with warmth dry lower extremity over shins Skin: Capillary Refill: Capillary refill takes less than 2 seconds. Findings: Erythema present. Comments: Warmth noted left lower greene area. Dry with wounds almost plaque-like. Neurological: General: No focal deficit present. Mental Status: He is alert and oriented to person, place, and time. Psychiatric: Mood and Affect: Mood normal. Behavior: Behavior normal. Results Labs Reviewed BASIC METABOLIC PANEL - Abnormal Result Value Sodium 137 Potassium 4.8 Chloride 104 CO2 26 Anion Gap 7 Glucose 201 (*) BUN 13 Creatinine 1.32 (*) eGFR 58 (*) BUN/Creatinine Ratio 9.8 Calcium 9.3 CBC WITH AUTO DIFFERENTIAL - Abnormal WBC 10.0 RBC 4.50 Hemoglobin 12.7 (*) Hematocrit 39.5 (*) MCV 87.4 MCH 28.1 MCHC 32.2 RDW 14.4 Platelets 226 MPV 9.2 NRBC 0.0 NRBC Absolute 0.00 Neutrophils Relative 61.0 Lymphocytes Relative 28.3 Monocytes Relative 6.3 Eosinophils Relative 3.5 Basophils Relative 0.4 Immature Granulocytes Relative 0.5 Neutrophils Absolute 6.08 Lymphocytes Absolute 2.82 Monocytes Absolute 0.63 Eosinophils Absolute 0.35 Basophils Absolute 0.04 Immature Granulocytes Absolute 0.05 (*) SEDIMENTATION RATE - Abnormal Sed Rate 50 (*) C-REACTIVE PROTEIN - Abnormal C-Reactive Protein 0.84 (*) CBC AND DIFFERENTIAL Narrative: The following orders were created for panel order CBC and differential. Procedure Abnormality Status --------- ------ CBC auto differential[[id number]] Abnormal Final result Please view results for these tests on the individual orders. Abnormal Labs Reviewed BASIC METABOLIC PANEL - Abnormal; Notable for the following components: Result Value Glucose 201 (*) Creatinine 1.32 (*) eGFR 58 (*) All other components within normal limits CBC WITH AUTO DIFFERENTIAL - Abnormal; Notable for the following components: Hemoglobin 12.7 (*) Hematocrit 39.5 (*) Immature Granulocytes Absolute 0.05 (*) All other components within normal limits SEDIMENTATION RATE - Abnormal; Notable for the following components: Sed Rate 50 (*) All other components within normal limits C-REACTIVE PROTEIN - Abnormal; Notable for the following components: C-Reactive Protein 0.84 (*) All other components within normal limits No orders to display I have discussed the incidental/abnormal imaging and/or lab abnormalities with the patient and haveinstructed them the need for further evaluation and workup with their primary care doctor. I have provided the patient with a paper copy of the abnormality. The laboratory results, imaging results and other diagnostic exam results were reviewed in the EMR. EKG Interpretation Critical Care Time None ? Differential Diagnosis Cellulitis Lymphedema Diabetes Medical Decision Making Well-appearing. Vital signs are stable. Evaluated discussed with my supervising physician pending labs. Labs unremarkable. Will start patient on Doxy and Lasix recommend patient to follow-up with his primary care doctor and Dr. Ziegler next week. Patient given IV Vanco in the emergency department and Lasix iv redness probably secondary to lower extremity edema. Concern of early cellulitis. Does have some wounds on the left lower extremity well treat and start on doxycycline Medications vancomycin (VANCOCIN) 1 g in sodium chloride 0.9 % 250 mL IVPB (0 g intravenous Stopped 01/15/25 1329) furosemide (LASIX) injection 40 mg (40 mg intravenous Given 01/15/25 1224) Clinical Impressions as of 01/15/25 1432 Lymphedema of both lower extremities Cellulitis, unspecified cellulitis site Amount and/or Complexity of Data Reviewed External Data Reviewed: Encounters reviewed in Chart Review. Details: Labs: ordered. Decision-making details documented in ED Course. Radiology: ordered. Decision-making details documented in ED Course. ECG/medicine tests: ordered. Decision-making details documented in ED Course. Procedures Procedures Diagnosis 1. Lymphedema of both lower extremities 2. Cellulitis, unspecified cellulitis site Disposition Discharge ED Prescriptions Medication Sig Dispense Start Date End Date Auth. Provider furosemide (LASIX) 20 mg tablet Take 1 tablet (20 mg total) by mouth 1 (one) time each day for 5 days. 5 each 01/15/2025 01/20/2025 SILVIANO Gerber doxycycline (VIBRAMYCIN) 100 mg capsule Take 1 capsule (100 mg total) by mouth 2 (two) times a day for 10 days. Take with at least 8 ounces (large glass) of water, do not lie down for 30 minutes after. Administer 2 hours before or after multivitamins, antacids, or other products containing polyvalent cations (i.e., calcium, iron, magnesium, selenium, zinc). 20 capsule 01/15/2025 01/25/2025 SILVIANO Gerber Physician Attestation SILVIANO Gerber 01/15/25 1217 SILVIANO Gerber 01/15/25 1433 SILVIANO Gerber 01/15/25 1434 SILVIANO Gerber 01/15/25 1446 Cosigned by Kamron Julien MD at 01/17/2025 11:06 AM EST documented in this encounter Plan of Treatment Upcoming Encounters Date Type Department Care Team (Late st Contact Info) Description 02/10/2025 1:30 PM EDT Office Visit [place] [address] [phone] Javi Ziegler DPMaynor [address] [address] 02/16/2025 1:30 PM EDT Office Visit [address] [phone] Natasha Luna PA [address] [place] [address] 03/15/2025 2:30 PM EDT Office Visit Vascular Surgery [place] 300 [facility] [address] [place] [address] Alma Cruz PA 300 [facility] [address] [place] [address] 03/18/2025 3:00 PM EDT Office Visit Orthopedic Surgery - [place] [address] [facility] 250 [place] [address] Javi Ziegler, DPM 175 [facility] 250 [place] [address] 09/28/2025 10:45 AM EDT Office Visit [facility]phrology - [facility] [address] [place] [address] Willam Ibarra MD 3550 [facility] [address] [place] [address] documented as of this encounter Procedures Procedure Name Priority Date/Time Associated Diagnosis Comments CBC WITH AUTO DIFFERENTIAL STAT 01/15/2025 10:15 AM EST SEDIMENTATION RATE STAT Add-on 01/15/2025 10 :15 AM EST CBC AND DIFFERENTIAL STAT 01/15/2025 10:15 AM EST C-REACTIVE PROTEIN STAT Add-on 01/15/2025 10 :15 AM EST BASIC METABOLIC PANEL STAT 01/15/2025 10:15 AM EST documented in this encounter Results * (ABNORMAL) C-reactive protein (01/15/2025 10:15 AM EST) C-Reactive Protein 0.84(H) <=0.50 mg/dL LAB CHEMISTRY METHOD 01/15/2025 12:17 PM EST [facility] Blood Venous blood specimen / Unknown Venipuncture / Unknown 01/15/2025 10:15 AM EST 01/15/2025 10:29 AM EST Kamron Julien MD LAB BLOOD ORDERABLES Final Result Performing Organization Address City/[facility]/ZIP Co de Phone Number [facility] [address] [place] [address], [place] [phone] * (ABNORMAL) Sedimentation rate (01/15/2025 10:15 AM EST) [facility] Sed Rate 50(H) 0 - 20 mm/hr LAB HEMETOLOGY METHOD 01/15/2025 12:56 PM EST [facility] Blood Venous blood specimen / Unknown Venipuncture / Unknown 01/15/2025 10:15 AM EST 01/15/2025 10:29 AM EST Kamron Julien MD LAB BLOOD ORDERABLES Final Result Performing Organization Address [facility] Co de Phone Number [facility] [address] [place] [address], [place] [phone] * (ABNORMAL) CBC auto differential (01/15/2025 10:15 AM EST) Pathologist [facility] WBC 10.0 4.8 - 10.8 K/mcL LAB HEMETOLOGY METHOD 01/15/2025 10:44 AM EST [facility] RBC 4.50 4.50 - 5.50 M/mcL LAB HEMETOLOGY METHOD 01/15/2025 10:44 AM EST [facility] Hemoglobin 12.7(L) 13.5 - 17.5 g/dL LAB HEMETOLOGY METHOD 01/15/2025 10:44 AM EST [facility] Hematocrit 39.5(L) 42.0 - 54.0 % LAB HEMETOLOGY METHOD 01/15/2025 10:44 AM [facility] MCV 87.4 79.0 - 98.0 FL LAB HEMETOLOGY METHOD 01/15/2025 10:44 AM [facility] MCH 28.1 27.0 - 32.0 pcg LAB HEMETOLOGY METHOD 01/15/2025 10:44 AM [facility] MCHC 32.2 32.0 - 37.0 g/dL LAB HEMETOLOGY METHOD 01/15/2025 10:44 AM [facility] RDW 14.4 11.0 - 15.0 % LAB HEMETOLOGY METHOD 01/15/2025 10:44 AM [facility] Platelets 226 130 - 400 K/mcL LAB HEMETOLOGY METHOD 01/15/2025 10:44 AM [facility] MPV 9.2 7.0 - 11.0 FL LAB HEMETOLOGY METHOD 01/15/2025 10:44 AM [facility] NRBC 0.0 <1.0 % LAB HEMETOLOGY METHOD 01/15/2025 10:44 AM [facility] NRBC Absolute 0.00 <0.10 K/mcL LAB HEMETOLOGY METHOD 01/15/2025 10:44 AM [facility] Neutrophils Relative 61.0 % LAB HEMETOLOGY METHOD 01/15/2025 10:44 AM [facility] Lymphocytes Relative 28.3 % LAB HEMETOLOGY METHOD 01/15/2025 10:44 AM [facility] Monocytes Relative 6.3 % LAB HEMETOLOGY METHOD 01/15/2025 10:44 AM [facility] Eosinophils Relative 3.5 % LAB HEMETOLOGY METHOD 01/15/2025 10:44 AM [facility] Basophils Relative 0.4 % LAB HEMETOLOGY METHOD 01/15/2025 10:44 AM EST [facility] Immature Granulocytes Relative 0.5 % LAB HEMETOLOGY METHOD 01/15/2025 10:44 AM [facility] Neutrophils Absolute 6.08 1.50 - 7.00 K/mcL LAB HEMETOLOGY METHOD 01/15/2025 10:44 AM [facility] Lymphocytes Absolute 2.82 1.00 - 5.00 K/mcL LAB HEMETOLOGY METHOD 01/15/2025 10:44 AM [facility] Monocytes Absolute 0.63 0.20 - 1.00 K/mcL LAB HEMETOLOGY METHOD 01/15/2025 10:44 AM [facility] Eosinophils Absolute 0.35 0.00 - 0.50 K/mcL LAB HEMETOLOGY METHOD 01/15/2025 10:44 AM [facility] Basophils Absolute 0.04 0.00 - 0.20 K/mcL LAB HEMETOLOGY METHOD 01/15/2025 10:44 AM [facility] Immature Granulocytes Absolute 0.05(H) 0.00 - 0.03 K/mcL LAB HEMETOLOGY METHOD 01/15/2025 10:44 AM [facility] Blood Venous blood specimen / Unknown Venipuncture / Unknown 01/15/2025 10:15 AM EST 01/15/2025 10:29 AM EST us Kamron Julien MD LAB BLOOD ORDERABLES Final Result [facility] [address] [place] [address], * (ABNORMAL) Basic metabolic panel (01/15/2025 10:15 AM EST) Sodium 137 133 - 145 mmol/L LAB CHEMISTRY METHOD 01/15/2025 11:02 AM EST [facility] Potassium 4.8 3.5 - 5.5 mmol/L LAB CHEMISTRY METHOD 01/15/2025 11:02 AM [facility] Chloride 104 96 - 110 mmol/L LAB CHEMISTRY METHOD 01/15/2025 11:02 AM [facility] CO2 26 21 - 32 mmol/L LAB CHEMISTRY METHOD 01/15/2025 11:02 AM [facility] Anion Gap 7 3 - 11 LAB CHEMISTRY METHOD 01/15/2025 11:02 AM [facility] Glucose 201(H) 70 - 100 mg/dL LAB CHEMISTRY METHOD 01/15/2025 11:02 AM [facility] BUN 13 5 - 25 mg/dL LAB CHEMISTRY METHOD 01/15/2025 11:02 AM [facility] Creatinine 1.32(H) 0.70 - 1.30 mg/dL LAB CHEMISTRY METHOD 01/15/2025 11:02 AM [facility] eGFR 58(L) >=60 mL/min/1. 73m2 LAB CHEMISTRY METHOD 01/15/2025 11:02 AM [facility] Comment:Calculation based on the??Chronic Kidney Disease Epidemiology Collaboration (CKD-EPI) equation refit??without adjustment for race. BUN/Creatinine Ratio 9.8 LAB CHEMISTRY METHOD 01/15/2025 11:02 AM [facility] Calcium 9.3 8.5 - 10.5 mg/dL LAB CHEMISTRY METHOD 01/15/2025 11:02 AM [facility] Blood Venous blood specimen / Unknown Venipuncture / Unknown 01/15/2025 10:15 AM EST 01/15/2025 10:29 AM EST us Kamron Julien MD LAB BLOOD ORDERABLES Final Result [facility] [address] [place], [place] [address] [phone] documented in this encounter Visit Diagnoses Diagnosis Lymphedema of both lower extremities- Primary Cellulitis, unspecified cellulitis site documented in this encounter Administered Medications Inactive Administered Medications - up to 3 most recent administrations Medication Order MAR Action Action Date Dose Rate Site furosemide (LASIX) injection 40 mg 40 mg, intravenous, Once, On Sat01/15/25 at 1148, For 1 dose Given 01/15/2025 12:24 PM EST 40 mg vancomycin (VANCOCIN) 1 g in sodium chloride 0.9 % 250 mL IVPB 1 g, intravenous, at 250 mL/hr, Administer over 60 Minutes, Once, On Sat01/15/25 at 1200, For 1 dose, Indication: Skin/Soft Tissue New Bag 01/15/2025 12:27 PM EST 1 g 2 50 mL/hr documented in this encounter Active and Recently Administered Medications Times are shown in EST. Scheduled Medication Order 01/13/2025 01/14/2025 01/15/2025 furosemide (LASIX) injection 40 mg (COMPLETED) 40 mg, intravenous, Once, On Sat01/15/25 at 1148, For 1 dose 1224 (Given - Provid er: Makenzie Mccarthy RN) vancomycin (VANCOCIN) 1 g in sodium chloride 0.9 % 250 mL IVPB (COMPLETED) 1 g, intravenous, at 250 mL/hr, Administer over 60 Minutes, Once, On Sat01/15/25 at 1200, For 1 dose, Indication: Skin/Soft Tissue 1227 (New Bag - Prov ider: Makenzie Mccarthy RN)1329 (Stopped - Provider: Sanket Salazar RN) documented in this encounter Care Teams Director Software Development Relationship Specialty Start Date End Date Jude Davey MD [address] [place] [id number] PCP - General Internal Medicine 10/06/24 documented as of this encounter
--- OUTSIDE RECORDS SUMMARY | 2025-01-29 14:29 | XMS_ITS | Encounter Summary ---
Author Organization [facility] [address] Address [address] [place] [address] Care Team Providers Care Staff Nuclear Medicine Technologist Name Role Phone Jude Davey MD Primary Care Provider [phone] Reason for Visit * Reason Comments Follow-up 2 wk f/u great toe p ain Encounter Details Date Type Department Care Team (Late st Contact Info) Description 01/14/2025 1:15 PM EST Office Visit Orthopedic Surgery - [place] [address] [phone] Javi Solorio, DPM [address] [address] Cellulitis of left leg (Primary Dx) Social History Tobacco Use Types Packs/Day Years [...] Sign Reading Time Taken Comments Blood Pressure - - Pulse - - Temperature - - Respiratory Rate - - Oxygen Saturation - - Inhaled Oxygen Concentration - - Weight 111 kg (245 lb) 01/14/2025 1:00 PM EST Height 160 cm (5' 2.99 ) 01/14/2025 1:00 PM EST Body Mass Index 43.41 01/14/2025 1:00 PM EST documented in this encounter Progress Notes * Javi Solorio, DPM - 01/14/2025 1:15 PM EST Last MD visit: 08/18/2024 Bethany PHOENIX S Patient presents today stating the left leg redness and swelling has been getting more painful itchy achy and worse he continues to deny nausea vomiting fevers or chills has finished course of Augmentin with minimal to no improvement states the redness that has been getting worse despite finishing course of oral antibiotics for recurring cellulitis left lower extremity ROS: GENERAL: Pt denies nausea, fever, vomiting, [...] Morbid obesity with BMI of 40.0-44.9, adult ([facility]) E66.01, Z68.41 History of traumatic brain injury Z87.820 PPD positive, treated R76.11 Type II diabetes mellitus with renal manifestations ([facility]) E11.29 Benign essential hypertension I10 Shortness of breath R06.02 Bronchospasm J98.01 Obstructive sleep apnea moderate AHI 25 (2019 study AHI 24; severe in REM AHI 66 with nocturnal hypoxia G47.33 PLMD (periodic limb movement disorder) G47.61 Nocturnal hypoxemia G47.34 Stage 3a chronic kidney disease (HCC) N18.31 Hypertriglyceridemia E78.1 Microalbuminuria R80.9 BPH (benign [...] mouth daily. 30 Tablet 6 FreeStyle Lancets [facility] Use to test BS once daily. Dx Code E11.69 100 Each 5 ammonium lactate (LAC-HYDRIN) 12 % lotion Apply to soles of feet daily. At night wear socks to bed 400 g 2 No current facility-administered medications for this visit. ALLERGIES: [place] oil and Seasonal allergies PHYSICAL EXAM: Height [...] plantar flexion WNL. No muscle atrophy. DERMATOLOGICAL:. Skin thinning in texture shiny in appearance diffuse hyperpigmentation Hyperkeratotic tissue on the inner aspects of bilateral subfirst me tatarsals Toenails: Left Toenail(s) 1-5: Crumbling upon debridement, subungual debris, discoloration, dystrophy, elongation, mycotic appearance, onychomycosis, pain and thickening. Right Toenail(s) 1-5: Crumbling upon debridement, subungual debris, discoloration, dystrophy, elongation, mycotic appearance, onychomycosis, pain and thickening. Thickening of skin with fissure formation bilateral feet mid arch of his feet and peeling of his skin and ripping of his skin Redness swelling of the left lower extremity left leg localized cellulitic changes BIOMECHANICS: STJ ROM wnl, MTJ ROM wnl, 1st MPJ ROM limited bilaterally. Worsening hammertoe of theleft fifth digit with worsening pain on palpation callus remission dorsal lateral with significant nail atrophy and callus formation intra nail subungual IMAGING: N/A IMPRESSION: 1. Cellulitis of left leg PLAN: cellulitis left lower extremity discussed and reviewed prescription drug management Associated with worsening venous congestive diseases Patient has failed course of Augmentin outpatient oral antibiotics Would recommend presenting to the emergency room for further workup labs ESR CRP CBC and dose of IVantibiotics Patient is agreeable with this plan Patient is suffering from worsening cellulitis that has failed oral therapy that poses a threat to life and bodily function Patient is at moderate risk of morbidity and requires evaluation in the emergency room setting with multiple labs to be drawn ESR CRP CBC and IV antibiotics has failed outpatient Augmentin Javi Solorio DPM documented in this encounter Plan of Treatment Upcoming Encounters Date Type Department Care Team (Late st Contact Info) Description 02/10/2025 1:30 PM EDT Office Visit Orthopedic Surgery - [address] [phone] Javi Solorio, DPM [address] [address] 02/16/2025 1:30 PM EDT Office Visit Adult [facility] [address] [place] [address] Natasha Luna PA [address] [place] [address] 03/15/2025 2:30 PM EDT Office Visit Vascular Surgery - [place] [address] [facility] [address] [place] [address] Alma Cruz PA [address] [address] 03/18/2025 3:00 PM EDT Office Visit Orthopedic Surgery - [place] [address] [address] Javi Solorio, DPM [address] [address] 09/28/2025 10:45 AM EDT Office Visit Nephrology - [address] [phone] Willam Ibarra MD [address] [phone] documented as of this encounter Visit Diagnoses Diagnosis Cellulitis of left leg- Primary documented in this encounter Care Teams Staff Nuclear Medicine Technologist Relationship Specialty Start Date End Date Jude Davey MD [address] [place] [id number] PCP - General Internal Medicine 10/06/24 documented as of this encounter
--- OUTSIDE RECORDS SUMMARY | 2025-01-29 14:29 | XMS_ITS | Encounter Summary ---
Author Organization [facility] Address [address] [place] [address] Care Team Providers Care Family Physician Name Role Phone Jude Davey MD Primary Care Provider [phone] Reason for Visit * Reason Comments Follow-up Diabetic foot care Encounter Details Date Type Department Care Team (Late st Contact Info) Description 12/31/2024 1:15 PM EST Office Visit Orthopedic Surgery - [place] [address] [phone] Javi Solorio, DPM [address] [address] Cellulitis of left leg (Primary Dx); Dermatophytosis of nail; Pain in toe of right foot; Pain in toe of left foot; Type II diabetes mellitus with peripheral circulatory disorder (CMS/HCC); Diabetic mononeuropathy simplex (CMS/HCC); Peripheral venous insufficiency; Acquired hallux valgus of left foot; Acquired hallux valgus of right foot; Corns and callosities Social History Tobacco Use Types Packs/Day Years [...] - - Weight 111 kg (245 lb) 12/31/2024 12:53 PM EST Height 160 cm (5' 2.99 ) 12/31/2024 12:53 PM EST Body Mass Index 43.41 12/31/2024 12:53 PM EST documented in this encounter Ordered Prescriptions Prescription Sig Dispense Quantity Refills Last Filled Start Date End Date amoxicillin-clavula lynn (Augmentin) 875-125 mg per tablet Take 1 tablet by mouth 2 (two) times a day. 20 tablet 12/31/2024 documented in this encounter Progress Notes * Javi Solorio, DPM - 12/31/2024 1:15 PM EST Last MD visit: 08/18/2024 Bethany Villar Patient presents continue to complain of pain chronically behind both great toes he states he has chronic pain and balls of his feet he notes that he does his does have some numbness and tingling distally to get some achiness did recently have vascular studies done does not is following with vascular surgery for swelling both legs states his nails are longer painful thickened his calluses bother him as well he states that overall he is doing well at this time does note occasional swelling and potentially as well as his pain in the balls of both his feet is an achy discomfort is a 4 out of 10 on a visual analog scale has not been using [id number] Voltaren gel does wear supportive shoe gear but not diabetic shoes Reports new redness swelling of his left lower extremities been going for last 2 3 weeks pain slowly worse itchy achy he thinks it is infected he states has been throbbing and hot denies nausea vomiting fever chills or shortness of breath Patient continues to get reoccurring cellulitis of his leg states he has had been on several courses of antibiotics ROS: GENERAL: Pt denies nausea, fever, vomiting, [...] Morbid obesity with BMI of 40.0-44.9, adult ([facility]) E66.01, Z68.41 History of traumatic brain injury Z87.820 PPD positive, treated R76.11 Type II diabetes mellitus with renal manifestations ([facility]) E11.29 Benign essential hypertension I10 Shortness of breath R06.02 Bronchospasm J98.01 Obstructive sleep apnea moderate AHI 25 (2019 study AHI 24; severe in REM AHI 66 with nocturnal hypoxia G47.33 PLMD (periodic limb movement disorder) G47.61 Nocturnal hypoxemia G47.34 Stage 3a chronic kidney disease ([facility]) N18.31 Hypertriglyceridemia E78.1 Microalbuminuria R80.9 BPH (benign [...] mouth daily. 30 Tablet 6 FreeStyle Lancets [facility] Use to test BS once daily. Dx Code E11.69 100 Each 5 ammonium lactate (LAC-HYDRIN) 12 % lotion Apply to soles of feet daily. At night wear socks to bed 400 g 2 No current facility-administered medications for this visit. ALLERGIES: [place] oil and Seasonal allergies PHYSICAL EXAM: Height [...] N/A IMPRESSION: 1. Cellulitis of left leg 2. Dermatophytosis of nail 3. Pain in toe of right foot 4. Pain in toe of left foot 5. Type II diabetes mellitus with peripheral circulatory disorder ([facility]) 6. Diabetic mononeuropathy simplex ([facility]) 7. Peripheral venous insufficiency PLAN: cellulitis left lower extremity discussed and reviewed prescription drug management Associated with worsening venous congestive diseases Discussed referral to vascular surgery for second opinion patient declined Compression stockings reviewed Augmentin prescribed Follows up in 2 weeks Continue recommend compression therapy with Mayur bandages Discussed possible benefits from referral to infectious disease for second opinion for chronic recurring cellulitis secondary to venous congestive disease as did discussed with patient I do recommendmuch more aggressive compression therapy and treatment for his venous congestive diseases causing recurring cellulitic changes he states he like to think about it at this time but does not want to pursue and declines referral Continue with lotions hydration recommend wmhy-ipx-tkhuire survey he can continue ammonium lactate discussed urea cream kpyt-pth-exqxgoy as well would recommend he continues with lower extremities ammonium lactate as well as antifungal medications including lnsk-ipa-zagtsic options Encouraged to continue avoid finger soaks of his toenails and skin Arthritis of both great toes discussed steroid injections were offered to the patient he like to hold off at this time discussed urex-hdf-irvuiik Voltaren gel as well as oral anti-inflammatories for acute flareups including ibuprofen ketw-chu-auwmooe Discussed with patient further work-up and treatment Debridement of mycotic toenails 6-10: Verbal informed consent was obtained from the patient. Greater than 6 nails were aseptically debrided in thickness and length with nail nippers Hyperkeratotic tissue debrided pared with a number #15 scalpel blade x2 Javi Solorio DPM documented in this encounter Plan of Treatment Upcoming Encounters Date Type Department Care Team (Late st Contact Info) Description 02/10/2025 1:30 PM EDT Office Visit Orthopedic Surgery - [place] [address] [address] Javi Solorio DPM [address] [address] 02/16/2025 1:30 PM EDT Office Visit [facility] [address] [place] [address] Natasha Luna PA 4 [place] [address] 03/15/2025 2:30 PM EDT Office Visit Vascular Surgery [facility] [address] [phone] Alma Curz PA 300 [facility] 210 [place] [address] 03/18/2025 3:00 PM EDT Office Visit Orthopedic Surgery - [place] [address] [phone] Javi Solorio DPM [address] [address] 09/28/2025 10:45 AM EDT Office Visit Nephrology - [facility] [address] [place] [address] Willam Ibarra MD [address] [phone] documented as of this encounter Visit Diagnoses Diagnosis Cellulitis of left leg- Primary Dermatophytosis of nail Pain in toe of right foot Pain in soft tissues of limb Pain in toe of left foot Pain in soft tissues of limb Type II diabetes mellitus with peripheral circulatory disorder (CMS/HCC) Type II or unspecified type diabetes mellitus with peripheral circulatory disorders, not stated as uncontrolled Diabetic mononeuropathy simplex (CMS/HCC) Type II or unspecified type diabetes mellitus with neurological manifestations, not stated as uncontrolled Peripheral venous insufficiency Unspecified venous (peripheral) insufficiency Acquired hallux valgus of left foot Acquired hallux valgus of right foot Corns and callosities documented in this encounter Care Teams Family Physician Relationship Specialty Start Date End Date Jude Davey MD [address] [place] [address] PCP - General Internal Medicine 10/06/24 documented as of this encounter
== END 2025-01-29 14:07 | disposition home or self-care (01) ==
PROVIDERS: PCP Internal Medicine; Visit Provider Physician Assistant Medical
DX: R60.0 Localized edema (principal); I87.2 Venous insufficiency (chronic) (peripheral)

== ENCOUNTER → 2025-01-29 12:16 | Outpatient (BNVA) | payer MEDICARE, MEDICAID, SELFPAY | PROVIDERS: PCP Internal Medicine | DX: R06.00 Dyspnea, unspecified (principal); I87.2 Venous insufficiency (chronic) (peripheral) | CPT/HCPCS: 99212 ==

== ENCOUNTER 2025-03-19 13:52 | Outpatient (REF) | payer MEDICARE, MEDICAID, SELFPAY ==
--- OUTSIDE RECORDS SUMMARY | 2025-03-19 14:45 | XMS_ITS | Encounter Summary ---
Author Organization [facility] Address [address] [place] [address] Care Team Providers Care Land Development Manager Name Role Phone Jude Davey MD Primary Care Provider [phone] Reason for Visit * Reason Onset Date Comments FYI 02/24/2025 Encounter Details Date Type Department Care Team ([facility] st Contact Info) Description 02/24/2025 Telephone Adult Medicine [address] [phone] Jude Davey MD [address] [place] [phone] FYI Social History Tobacco Use Types Packs/Day [...] Tiarra Prince - 02/24/2025 10:52 AM EDT [facility] is calling with some information for [...] Description 03/24/2025 9:15 AM EDT Ancillary Procedure [facility] - [facility] 101 300 [facility] 101 [place] [address] 03/31/2025 2:45 PM EDT Office Visit Adult Medicine [facility] [address] [place] [address] Natasha Luna PA [address] [place], [place] 06/17/2025 3:00 PM EDT Office Visit Orthopedic Surgery - [place] [address] [phone] Javi Solorio, DPM [address] [address] 08/24/2025 4:30 PM EDT Office Visit Adult Medicine [address] [phone] Jude Davey MD [address] [place] [address] 09/28/2025 10:45 AM EDT [facility] [address] [place] [address] Willam Ibarra MD 35[address] [facility] [address] [place] [phone] documented as of this encounter Visit Diagnoses Not on filedocumented in this encounter Care Teams Land Development Manager Relationship Specialty Start Date End Date Jude Davey MD [address] [place] [address] PCP - General Internal Medicine 10/06/24 documented as of this encounter
--- OUTSIDE RECORDS SUMMARY | 2025-03-19 14:45 | XMS_ITS | Clinical Summary ---
Author Organization [facility] [address] [place] [address] [place] [address] CRYSTAL Elias [phone] Phone Care Team Providers Care Bromination Equipment Operator Name Role Phone Jude Davey MD Primary Care Provider [phone] Allergies Active Allergy Reactions Criticality Noted Date Comments Bee Pollen 02/06/2023 [place] Oil 07/03/2010 Olives - tongue swells Other [...] obesity with BMI of 4 0.0-44.9, adult ([facility] V24, [facility] V28) 09/30/2024 BPH (benign prostatic hyperplasia) 04/02/2024 Microalbuminuria 09/13/2022 Hypertriglyceridemia 09/11/2022 Stage 3a chronic kidney disease ([facility] V24, [facility] V28) 10/25/2021 Nocturnal hypoxemia 04/18/2021 PLMD (periodic limb movement disorder) 9 Obstructive sleep apnea 04/05/2019 Overview (09/30/2024): [facility] Home Polysomnogram: Date 03/30/2019; Wt 240#; BMI 43; MOOSE 22, AI 5; HI 17; Unclassified apneas 26; Obstructive apneas 12; Central apneas 7; Mixed apneas 1; hypopneas 170; average oxygen saturation 93% (lowest 68% with saturations <88% for 5% or more of study) [facility] Polysomnogram: Date 06/08/2019; Wt 240#; BMI 34; SE 63%; SM 75%; REM 25%; RDI 28 (AHI 24), REM (RDI 67 - AHI 66), Central apneas 0; Obstructive apneas 0; Mixed apneas 0; hypopneas 99; RERAs 19; average oxygen saturation 92% (lowest 71% - with saturations <88% for 5% or more of study); PLMs 51.- 06/08/2019 Prestudy ESS 5; 0/4 RLS symptoms. [facility] Polysomnogram treatment study. Date [...] Pre-study ESS 3. 0/[address] [facility] Home Sleep Apnea Test: Date [...] II diabetes mellitus wi th renal manifestations ([facility] V24, [facility] V28) 06/02/2015 PPD positive, treated 12/17/2014 Overview (09/30/2024): 8163-1518, treated for 6 months (1 yr per sister). Should not get rpt PPD GERD (gastroesophageal reflux disease) 3 Gout 02/05/2013 Memory loss 01/30/2007 Encounters Date Type Department Care Team Description 03/18/2025 3:00 PM EDT Office Visit Orthopedic Surgery [facility] [address] [phone] Javi Solorio DPM Gout of foot, unspecified cause, unspecified chronicity, unspecified laterality (Primary Dx); Dermatophytosis of nail; Pain in toe of left foot; Pain in toe of right foot; Diabetic mononeuropathy simplex ([facility] V24, [facility] V28); Type II diabetes mellitus with peripheral circulatory disorder ([facility] V24, [facility] V28) 02/24/2025 Telephone Adult [address] [phone] Jude Davey MD Lou 02/16/2025 1:30 PM EDT Office Visit Adult [address] [phone] Natasha Luna PA Benign essential hypertension (Primary Dx); Hypertriglyceridemia; Stage 3a chronic kidney disease ([facility] V24, [facility] V28); Type 2 diabetes mellitus with stage 3a chronic kidney disease, without long-term current use of insulin ([facility] V24, [facility] V28); Class 3 severe obesity with body mass index (BMI) of 40.0 to 44.9 in adult, unspecified obesity type, unspecified whether serious comorbidity present ([facility] V24, [facility] V28) 02/10/2025 1:30 PM EDT Office Visit Orthopedic Surgery [facility] [address] [phone] Javi Solorio DPM Dermatitis (Primary Dx); Diabetic mononeuropathy simplex ([facility] V24, [facility] V28); Corns and callosities; Dermatophytosis of nail 02/03/2025 Telephone Adult Medicine [address] [phone] Jude Davey MD Medication Problem 01/20/2025 1:00 PM EST Office Visit Orthopedic [place] [address] [phone] Javi Solorio DPM Dermatitis (Primary Dx); Cellulitis of left leg; Peripheral venous insufficiency 01/15/2025 11:00 AM EST - 01/15/2025 3:17 PM EST Emergency [facility] Emergency [address] [place] [phone] Kamron Julien MD Lymphedema of both lower extremities (Primary Dx); Cellulitis, unspecified cellulitis site Discharge Disposition: Home or Self Care 01/14/2025 1:15 PM EST Office Visit Orthopedic [facility] [address] [phone] Javi Solorio DPM Cellulitis of left leg (Primary Dx) 12/31/2024 1:15 PM EST Office Visit Orthopedic [place] [address] [phone] Javi Solorio DPM Cellulitis of left leg (Primary Dx); Dermatophytosis of nail; Pain in toe of right foot; Pain in toe of left foot; Type II diabetes mellitus with peripheral circulatory disorder ([facility]/HCC V24, CMS/[facility] V28); Diabetic mononeuropathy simplex (CMS/HCC V24, CMS/HCC V28); Peripheral venous insufficiency; Acquired hallux valgus of left foot; Acquired hallux valgus of right foot; Corns and callosities from Last 3 Months Immunizations Name Administration Dates Next Due Skoovy/CorNova SARS-CoV-2 COVID -19, vector-nr, rS-Ad26, preservative free [...] DX:History of traumatic brain injury Morbid obesity ([facility] V24, [facility] V28) 11/10/2014 DX:Morbid obesity ([facility]); COM MENT: BMI 42.74 on 02/04/2013 GERD [...] Description 03/24/2025 9:15 AM EDT Ancillary Procedure [facility] - [facility] 101 300 [facility] 101 [place] [phone] 03/31/2025 2:45 PM EDT Office Visit Adult Medicine [address] [phone] Natasha Luna PA [address] [place] [address] 06/17/2025 3:00 PM EDT Office Visit Orthopedic Surgery - [place] [address] [phone] Javi Solorio, DPM [address] [address] 08/24/2025 4:30 PM EDT Office Visit Adult [address] [phone] Jude Davey MD [address] [place] [address] 09/28/2025 10:45 AM EDT Office Visit Nephrology - [address] [phone] Willam Ibarra MD 5930 [facility] 204 [place] [phone] Health Maintenance Due Date Last Done Comments [...] LAB HEMETOLOGY METHOD 01/15/2025 10:44 AM EST [facility] RBC 4.50 4.50 - 5.50 M/mcL LAB HEMETOLOGY METHOD 01/15/2025 10:44 AM EST [facility] Hemoglobin 12.7(L) 13.5 - 17.5 g/dL LAB HEMETOLOGY METHOD 01/15/2025 10:44 AM EST [facility] Hematocrit 39.5(L) 42.0 - 54.0 % LAB HEMETOLOGY METHOD 01/15/2025 10:44 AM [facility] MCV 87.4 79.0 - 98.0 FL LAB HEMETOLOGY METHOD 01/15/2025 10:44 AM [facility] MCH 28.1 27.0 - 32.0 pcg LAB HEMETOLOGY METHOD 01/15/2025 10:44 AM [facility] MCHC 32.2 32.0 - 37.0 g/dL LAB HEMETOLOGY METHOD 01/15/2025 10:44 AM [facility] RDW 14.4 11.0 - 15.0 % LAB HEMETOLOGY METHOD 01/15/2025 10:44 AM [facility] Platelets 226 130 - 400 K/mcL LAB HEMETOLOGY METHOD 01/15/2025 10:44 AM [facility] MPV 9.2 7.0 - 11.0 FL LAB HEMETOLOGY METHOD 01/15/2025 10:44 AM [facility] NRBC 0.0 <1.0 % LAB HEMETOLOGY METHOD 01/15/2025 10:44 AM [facility] NRBC Absolute 0.00 <0.10 K/mcL LAB HEMETOLOGY METHOD 01/15/2025 10:44 AM [facility] Neutrophils Relative 61.0 % LAB HEMETOLOGY METHOD 01/15/2025 10:44 AM [facility] Lymphocytes Relative 28.3 % LAB HEMETOLOGY METHOD 01/15/2025 10:44 AM [facility] Monocytes Relative 6.3 % LAB HEMETOLOGY METHOD 01/15/2025 10:44 AM [facility] Eosinophils Relative 3.5 % LAB HEMETOLOGY METHOD 01/15/2025 10:44 AM [facility] Basophils Relative 0.4 % LAB HEMETOLOGY METHOD 01/15/2025 10:44 AM EST [facility] Immature Granulocytes Relative 0.5 % LAB HEMETOLOGY METHOD 01/15/2025 10:44 AM EST [facility] Neutrophils Absolute 6.08 1.50 - 7.00 K/mcL LAB HEMETOLOGY METHOD 01/15/2025 10:44 AM EST [facility] Lymphocytes Absolute 2.82 1.00 - 5.00 K/mcL LAB HEMETOLOGY METHOD 01/15/2025 10:44 AM EST [facility] Monocytes Absolute 0.63 0.20 - 1.00 K/mcL LAB HEMETOLOGY METHOD 01/15/2025 10:44 AM EST [facility] Eosinophils Absolute 0.35 0.00 - 0.50 K/mcL LAB HEMETOLOGY METHOD 01/15/2025 10:44 AM EST [facility] Basophils Absolute 0.04 0.00 - 0.20 K/mcL LAB HEMETOLOGY METHOD 01/15/2025 10:44 AM [facility] Immature Granulocytes Absolute 0.05(H) 0.00 - 0.03 K/mcL LAB HEMETOLOGY METHOD 01/15/2025 10:44 AM [facility] Blood Venous blood specimen / Unknown Venipuncture / Unknown 01/15/2025 10:15 AM EST 01/15/2025 10:29 AM EST us Kamron Julien MD LAB BLOOD ORDERABLES Final Result [facility] [address] [place] [address], * (ABNORMAL) Sedimentation rate (01/15/2025 10:15 AM EST) Sed Rate 50(H) 0 - 20 mm/hr LAB HEMETOLOGY METHOD 01/15/2025 12:56 PM EST [facility] Blood Venous blood specimen / Unknown Venipuncture / Unknown 01/15/2025 10:15 AM EST 01/15/2025 10:29 AM EST Kamron Julien MD LAB BLOOD ORDERABLES Final Result Performing Organization Address [facility]/ZIP Co de Phone Number [facility] [address] [place] [address], [place] [phone] * (ABNORMAL) C-reactive protein (01/15/2025 10:15 AM EST) Pathologist [facility] C-Reactive Protein 0.84(H) <=0.50 mg/dL LAB CHEMISTRY METHOD 01/15/2025 12:17 PM [facility] Blood Venous blood specimen / Unknown Venipuncture / Unknown 01/15/2025 10:15 AM EST 01/15/2025 10:29 AM EST Kamron Julien MD LAB BLOOD ORDERABLES Final Result Performing Organization Address [facility]/ZIP Co de Phone Number [facility] [address] [place] [address], [place] [phone] * (ABNORMAL) Basic metabolic panel (01/15/2025 10:15 AM EST) Pathologist [facility] Sodium 137 133 - 145 mmol/L LAB CHEMISTRY METHOD 01/15/2025 11:02 AM [facility] Potassium 4.8 3.5 - 5.5 mmol/L LAB CHEMISTRY METHOD 01/15/2025 11:02 AM [facility] Chloride 104 96 - 110 mmol/L LAB CHEMISTRY METHOD 01/15/2025 11:02 AM [facility] CO2 26 21 - 32 mmol/L LAB CHEMISTRY METHOD 01/15/2025 11:02 AM [facility] Anion Gap 7 3 - 11 LAB CHEMISTRY METHOD 01/15/2025 11:02 AM [facility] Glucose 201(H) 70 - 100 mg/dL LAB CHEMISTRY METHOD 01/15/2025 11:02 AM [facility] BUN 13 5 - 25 mg/dL LAB CHEMISTRY METHOD 01/15/2025 11:02 AM [facility] Creatinine 1.32(H) 0.70 - 1.30 mg/dL LAB CHEMISTRY METHOD 01/15/2025 11:02 AM [facility] eGFR 58(L) >=60 mL/min/1. 73m2 LAB CHEMISTRY METHOD 01/15/2025 11:02 AM [facility] Comment:Calculation based on the??Chronic Kidney Disease Epidemiology Collaboration (CKD-EPI) equation refit??without adjustment for race. BUN/Creatinine Ratio 9.8 LAB CHEMISTRY METHOD 01/15/2025 11:02 AM [facility] Calcium 9.3 8.5 - 10.5 mg/dL LAB CHEMISTRY METHOD 01/15/2025 11:02 AM [facility] Blood Venous blood specimen / Unknown Venipuncture / Unknown 01/15/2025 10:15 AM EST 01/15/2025 10:29 AM EST Kamron Julien MD LAB BLOOD ORDERABLES Final Result [facility] [address] [place] [address], * Urine Albumin Creatinine Ratio (04/20/2024) Urine Albumin Creatinine Ratio Abstracted Historical Provider HEALTH MAINTENANCE Final Result * Falls Risk Assessment (04/16/2024) Falls Risk Assessment Abstracted Historical Provider HEALTH MAINTENANCE Final Result * (ABNORMAL) Hemoglobin A1c (02/04/2024) Hemoglobin A1C 6.8(A) <=6.5 % Blood Venous blood specimen / Unknown Result [facility] Provider LAB BLOOD ORDERABLES Kristina l Result * (ABNORMAL) Lipid panel (02/04/2024) [facility] LDL/HDL Ratio 4 0 - 4 Triglycerides 187(A) 0 - 150 mg/dL Cholesterol 167 0 - 200 mg/dL HDL 41 >=40 mg/dL LDL Cholesterol 89 0 - 100 mg/dL Blood Venous blood specimen / Unknown Result [facility] Provider LAB BLOOD ORDERABLES Kristina l Result * Colonoscopy (01/06/2024) [facility] Colonoscopy No Interpretation , Abstracted Comment:Postponed until 2024 by Edie Cox (Patient Refused) 11/05/2011 Refused - referred, spoke to GI nurse, declined. Anatomical Region Laterality Modality Other Result [facility] Provider HEALTH MAINTENANCE Final Result * Diabetes Eye Exam (10/30/2023) [facility] Diabetes: Annual Retina Eye Exam Abstracted Result [facility] Provider HEALTH MAINTENANCE Final Result * Depression Screening (10/15/2023) [facility] Depression Screening Abstracted Result [facility] Provider HEALTH MAINTENANCE Final Result * Hepatitis C Screening (12/18/2014) [facility] Hepatitis C Screening Abstracted Result [facility] Provider HEALTH MAINTENANCE Final Result from Last 3 Months or Most Recently Relevant to Health Maintenance Insurance MEDICARE [place]ICA[place] - [place] [employer] Advance Directives Documents on File Type Date Recorded Patient Information Scientist Expl anation Health Care Decision (hx) 07/31/2022 AD ONEILL DIRECTIVE Health Care Decision (hx) 07/31/2022 AD ONEILL DIRECTIVE Health Care Decision (hx) 07/31/2022 AD ONEILL DIRECTIVE Health Care Decision (hx) 06/10/2017 AD ONEILL DIRECTIVE Health Care Decision (hx) 06/10/2017 AD ONEILL DIRECTIVE Health Care Decision (hx) 06/10/2017 AD ONEILL DIRECTIVE Care Teams Bromination Equipment Operator Relationship Specialty Start Date End Date Jude Davey MD [address] [place] [id number] PCP - General Internal Medicine 10/06/24
--- OUTSIDE RECORDS SUMMARY | 2025-03-19 14:45 | XMS_ITS | Encounter Summary ---
Author Organization [facility] Address [address] [place] [address] Care Team Providers Care Home Care Administrator Name Role Phone Jude Davey MD Primary Care Provider [phone] Encounter Details Date Type Department Care Team (Late st Contact Info) Description 03/18/2025 3:00 PM EDT Office Visit Orthopedic Surgery - [place] [address] [phone] Javi Solorio, DPM [address] [address] Gout of foot, unspecified cause, unspecified chronicity, unspecified laterality (Primary Dx); Dermatophytosis of nail; Pain in toe of left foot; Pain in toe of right foot; Diabetic mononeuropathy simplex ([facility] V24, [facility] V28); Type II diabetes mellitus with peripheral circulatory disorder ([facility] V24, [facility] V28) Social History Tobacco Use Types Packs/Day [...] Morbid obesity with BMI of 40.0-44.9, adult ([facility]) E66.01, Z68.41 History of traumatic brain injury Z87.820 PPD positive, treated R76.11 Type II diabetes mellitus with renal manifestations ([facility]) E11.29 Benign essential hypertension I10 [...] current facility-administered medications for this visit. ALLERGIES: [place] oil and Seasonal allergies PHYSICAL EXAM: Height [...] foot 5. Diabetic mononeuropathy simplex (CMS/HCC V24, CMS/[facility] V28) 6. Type II diabetes mellitus with [...] Description 03/24/2025 9:15 AM EDT Ancillary Procedure [facility] [address] [phone] 03/31/2025 2:45 PM EDT Office Visit Adult Medicine [address] [phone] Natasha Luna PA [address] [place] [phone] 06/17/2025 3:00 PM EDT Office Visit Orthopedic Surgery - [place] [address] [phone] Javi Solorio DPM [address] [address] 08/24/2025 4:30 PM EDT Office Visit Adult Medicine [address] [phone] Jude Davey MD [address] [place] [address] 09/28/2025 10:45 AM EDT Office Visit Nephrology - [address] [phone] Willam Ibarra MD [address] [phone] documented as of this encounter Visit Diagnoses Diagnosis Gout of foot, unspecified cause, unspecified chronicity, unspecified laterality- Primary Dermatophytosis of nail Pain in toe of left foot Pain in soft tissues of limb Pain in toe of right foot Pain in soft tissues of limb Diabetic mononeuropathy simplex ([facility] V24, [facility] V28) Type II or unspecified type diabetes mellitus with neurological manifestations, not stated as uncontrolled Type II diabetes mellitus with peripheral circulatory disorder ([facility] V24, [facility] V28) Type II or unspecified type diabetes mellitus with peripheral circulatory disorders, not stated as uncontrolled documented in this encounter Care Teams Home Care Administrator Relationship Specialty Start Date End Date Jude Davey MD [address] [place] [address] PCP - General Internal Medicine 10/06/24 documented as of this encounter
[2025-03-19 17:15] LABS: Influenza A PCR NEGATIVE (Negative); Influenza B PCR NEGATIVE (Negative); Resp Syncy Virus RNA Qual PCR NEGATIVE (Negative); SARS COV2 PCR INHOUSE NEGATIVE (Negative)
== END 2025-03-19 13:53 | disposition home or self-care (01) ==
LOC: HO.LAB 13:52
PROVIDERS: Physician Assistant; PCP Internal Medicine
DX: J06.9 Acute upper respiratory infection, unspecified (principal); R09.89 Other specified symptoms and signs involving the circulatory and respiratory systems
CPT/HCPCS: 0241U

== ENCOUNTER 2025-03-19 13:52 | Outpatient (AMB) | payer MEDICARE, MEDICAID, SELFPAY ==
--- NOTE | 2025-03-19 14:09 | AM.OFFWIN_ITS ---
Intake Vital Signs 03/19/25 14:13 Height 5 ft 3 in Weight 242 lb 8 oz BMI 43.0 BP 118/48 L Blood Pressure Location Rt brachial Position Sitting Respiration 16 Pulse 74 Pulse Source Pulse Oximeter Temp 98.2 F Temp Source Oral Pulse Oximetry (%) 96 Oxygen Delivery Method Room Air Intake Visit Reasons: EP Cold/allergies, sometimes sob, throat Intake Note: patient here c/o cold/allergies, somtimes sob, tingleing in the back of the throat occasionally Patient Tobacco Use Status: Never used Tobacco Extension Edger Required: No Allergies olive extract [OLIVE] Allergy (Unknown, Verified 03/19/25 14:12) SWELLING OF TONGUE Do you need a note to return to daycare/school/sports/work: No HPI HPI Comments History of Present Illness Details History - The patient is a 69-year-old male pres enting with acute respiratory symptoms. - He reports that 4-5 days ago, he began experiencing difficulty in expelling mucus from his throat, mixed with allergies. - He experiences dryness in the throat u gil waking and occasional tightness in the chest during deep breaths, but denies fever and chronic respiratory illnesses such as COPD or asthma. - Past medical history reveals no smokin g or vaping habits, but includes management with decongestants and daily use of Claritin for allergic rhinitis. - He denies head, ear, or sinus pain but notes pressure in the sinus area and the presence of colored phlegm. Physical Exam General: Cooperative, healthy appearing, comfortable and no acute distress Orientation/consciousness: Patient oriented x3 Limitations: No limitations Head: Normal to inspection Ears: Hearing grossly normal bilaterally, external ears normal and TM's normal bilaterally Nose: Normal external nose present, Normal nares present and No nasal discharge present Face and sinus: Normal facial exam and Sinuses tender to palpation Mouth: Normal oral and palatal mucosa present and moist mucous membranes Throat: Yes tonsils normal, Yes uvula midline. Posterior oropharynx erythema Eyes: Appearance normal, both eyes and all related structures Neck: Normal visual inspection Respiratory: Clear to auscultation bilaterally. Normal respiratory effort, able to speak in complete sentences, Actively coughing, no respiratory distress, not tachypneic, no tripod positioning and no use of accessory muscles Cardiovascular: Regular rate and rhythm. Normal S1 and S2 Skin: No rashes or lesions noted Neuro: Patient oriented x3 Extremities: Normal to inspection and Yes no clubbing, cyanosis or edema PFSH Social History Patient Tobacco Use Status: Never used Tobacco Review of Systems Const All systems reviewed & are unremarkable except as noted in HPI and below Physical Exam Vital Signs: Last Vital Signs Temp 98.2 F 03/19/25 14:13 Pulse 74 03/19/25 14:13 Resp 16 03/19/25 14:13 BP 118/48 L 03/19/25 14:13 Pulse Ox 96 03/19/25 14:13 Oxygen Delivery Method Room Air 03/19/25 14:13 BMI result Body Mass Index 43.0 Assessment & Plan Assessment & Plan (1) URI, acute: Code(s): J06.9 - Acute upper respiratory infection, unspecified Plan: VSS, pt well appearing and PE unremarkable. The patient exhibits symptoms consistent with a viral upper respiratory infection. Treatment to alleviate symptoms includes continued use of decongestants and encouragement to increase fluid intake to assist in thinning respiratory secretions. Daily Claritin should be maintained for control of allergic symptoms. Tests for influenza, RSV, and COVID-19 will be performed to exclude more serious respiratory conditions. The patient's normal vital signs and clear lung examination reduce immediate concern for severe disease progression, guiding current treatment towards supportive care. Patient was informed and verbally consented to the use of an ambient scribe for clinic note documentation during this visit Orders: Orders SARS-CoV2/FLU/RSV Today R09.89 - Other specified symptoms and signs involving the circulatory and respiratory systems Coding Level of Care Code New Pt Level 3 (92283) Diagnoses URI, acute J06.9
--- OUTSIDE RECORDS SUMMARY | 2025-03-19 14:12 | XMS_ITS | Clinical Summary ---
Author Organization [facility] [address] [place] [address] [place] [address] CRYSTAL Elias [phone] Phone Care Team Providers Care Concrete Plant Laborer Name Role Phone Jude Davey MD Primary Care Provider [phone] Allergies Active Allergy Reactions Criticality Noted Date Comments Bee Pollen 02/06/2023 Walnut Oil 07/03/2010 Olives - tongue swells Other 05/13/2010 Seasonal Allergies Other Reaction(s): Runny Nose/Rhinitis Medications fluticasone propionate (FLONASE) 50 mcg/actuation nasal spray Administer 2 sprays into each nostril 1 (one) time each day. 4 Active ammonium lactate (LAC-HYDRIN) 12 % lotion Apply 12 Applications topically at bedtime as needed for dry skin or irritation. Apply to soles of feet daily. At night wear socks to bed 2 Active atorvastatin (LIPITOR) 10 mg tablet Take 1 tablet (10 mg total) by mouth at bedtime. 4 Active diclofenac (VOLTAREN) 1 % topical gel Apply 4 g topically 4 (four) times a day. 4 Active empagliflozin (Jardiance) 10 mg tablet Take 1 tablet (10 mg total) by mouth 1 (one) time each day. 4 Active glipiZIDE (GLUCOTROL XL) 10 mg 24 hr tablet Take 1 tablet (10 mg total) by mouth 2 (two) times a day. 4 Active amLODIPine (NORVASC) 10 mg tablet TAKE 1 TABLET BY MOUTH EVERY DAY 90 tablet 1 5 Active amoxicillin-cla vulanate (Augmentin) 875-125 mg per tablet Take 1 tablet by mouth 2 (two) times a day. 20 tablet 5 Active furosemide (LASIX) 20 mg tablet Take 1 tablet (20 mg total) by mouth 1 (one) time each day for 5 days. 5 each 5 Active lidocaine (LIDODERM) 5 % patchIndication s:Dermatitis Apply 1 patch topically 1 (one) time each day. Remove & discard patch within 12 hours or as directed by MD. 30 each 2 5 04/20/20 25 Active metFORMIN (GLUCOPHAGE) 1,000 mg tablet TAKE 1 TABLET BY MOUTH TWICE A DAY WITH MEALS 180 tablet 1 5 Active blood sugar diagnostic (FreeStyle Lite Strips) test strip Use to check blood sugar once daily. 100 each 1 5 Active freestyle (FreeStyle Lancets) 28 gauge lancets Use to check blood sugar once daily. 100 each 1 5 Active lisinopriL (PRINIVIL,ZESTR IL) 30 mg tablet Take 1 tablet (30 mg total) by mouth 1 (one) time each day. 90 tablet 1 5 Active Active Problems Problem Noted Date Diagnosed Date Morbid obesity with BMI of 4 0.0-44.9, adult ([facility] V24, [facility] V28) 09/30/2024 BPH (benign prostatic hyperplasia) 04/02/2024 Microalbuminuria 09/13/2022 Hypertriglyceridemia 09/11/2022 Stage 3a chronic kidney disease ([facility] V24, CM S/[facility] V28) 10/25/2021 Nocturnal hypoxemia 04/18/2021 PLMD (periodic limb movement disorder) 9 Obstructive sleep apnea 04/05/2019 Overview (09/30/2024): [facility] Home Polysomnogram: Date 03/30/2019; Wt 240#; BMI 43; MOOSE 22, AI 5; HI 17; Unclassified apneas 26; Obstructive apneas 12; Central apneas 7; Mixed apneas 1; hypopneas 170; average oxygen saturation 93% (lowest 68% with saturations <88% for 5% or more of study) [facility] Polysomnogram: Date 06/08/2019; Wt 240#; BMI 34; SE 63%; SM 75%; REM 25%; RDI 28 (AHI 24), REM (RDI 67 - AHI 66), Central apneas 0; Obstructive apneas 0; Mixed apneas 0; hypopneas 99; RERAs 19; average oxygen saturation 92% (lowest 71% - with saturations <88% for 5% or more of study); PLMs 51.- 06/08/2019 Prestudy ESS 5; 0/4 RLS symptoms. [facility] Polysomnogram treatment study. Date 08/06/2019. [...] suggested. Pre-study ESS 3. 0/4 RLS symptoms. [facility] Home Sleep Apnea Test: Date 04/09/2021; Wt [...] all hypopneas; with sleep related hypoventilation by 2018 polysomnogram. - Obstructive Sleep Apnea - moderate; mostly hypopneas and unclassified apneas; with sleep related hypoventilation by 2018 home sleep apnea test. - Obstructive Sleep Apnea - moderate; mostly hypopneas with some obstructive apneas; with sleep related hypoventilation by 2020 home sleep apnea test. Bronchospasm 05/02/2017 Shortness of breath 05/02/2017 Benign essential hypertension 06/02/2015 Type II diabetes mellitus wi th renal manifestations ([facility] V24, [facility] V28) 06/02/2015 PPD positive, treated 12/17/2014 Overview (09/30/2024): 6468-9373, treated for 6 months (1 yr per sister). Should not get rpt PPD GERD (gastroesophageal reflux disease) 3 Gout 02/05/2013 Memory loss 01/30/2007 Encounters Date Type Department Care Team Description 03/18/2025 3:00 PM EDT Office Visit Orthopedic Surgery [facility] [address] [phone] Javi Solorio DPM Gout of foot, unspecified cause, unspecified chronicity, unspecified laterality (Primary Dx); Dermatophytosis of nail; Pain in toe of left foot; Pain in toe of right foot; Diabetic mononeuropathy simplex ([facility] V24, [facility] V28); Type II diabetes mellitus with peripheral circulatory disorder ([facility] V24, [facility] V28) 02/24/2025 Telephone Adult [address] [phone] Jude Davey MD Lou 02/16/2025 1:30 PM EDT Office Visit Adult [address] [phone] Natasha Luna PA Benign essential hypertension (Primary Dx); Hypertriglyceridemia; Stage 3a chronic kidney disease ([facility] V24, [facility] V28); Type 2 diabetes mellitus with stage 3a chronic kidney disease, without long-term current use of insulin ([facility] V24, [facility] V28); Class 3 severe obesity with body mass index (BMI) of 40.0 to 44.9 in adult, unspecified obesity type, unspecified whether serious comorbidity present ([facility] V24, [facility] V28) 02/10/2025 1:30 PM EDT Office Visit Orthopedic Surgery [facility] [address] [phone] Javi Solorio DPM Dermatitis (Primary Dx); Diabetic mononeuropathy simplex ([facility] V24, [facility] V28); Corns and callosities; Dermatophytosis of nail 02/03/2025 Telephone Adult Medicine [address] [phone] Jude Davey MD Medication Problem 01/20/2025 1:00 PM EST Office Visit Orthopedic [place] [address] [phone] Javi Solorio DPM Dermatitis (Primary Dx); Cellulitis of left leg; Peripheral venous insufficiency 01/15/2025 11:00 AM EST - 01/15/2025 3:17 PM EST Emergency [facility] Emergency [address] [place] [phone] Kamron Julien MD Lymphedema of both lower extremities (Primary Dx); Cellulitis, unspecified cellulitis site Discharge Disposition: Home or Self Care 01/14/2025 1:15 PM EST Office Visit Orthopedic [facility] [address] [phone] Javi Solorio DPM Cellulitis of left leg (Primary Dx) 12/31/2024 1:15 PM EST Office Visit Orthopedic [place] [address] [phone] Javi Solorio DPM Cellulitis of left leg (Primary Dx); Dermatophytosis of nail; Pain in toe of right foot; Pain in toe of left foot; Type II diabetes mellitus with peripheral circulatory disorder ([facility]/HCC V24, CMS/[facility] V28); Diabetic mononeuropathy simplex (CMS/HCC V24, CMS/HCC V28); Peripheral venous insufficiency; Acquired hallux valgus of left foot; Acquired hallux valgus of right foot; Corns and callosities from Last 3 Months Immunizations Name Administration Dates Next Due [employer] SARS-CoV-2 COVID -19, vector-nr, rS-Ad26, preservative free [...] DX:History of traumatic brain injury Morbid obesity ([facility] V24, [facility] V28) 11/10/2014 DX:Morbid obesity ([facility]); COM MENT: BMI 42.74 on 02/04/2013 GERD (gastroesophageal reflu [...] Sign Reading Time Taken Comments Blood Pressure 130/60 02/16/2025 1:44 PM EDT Pulse 82 02/16/2025 1:44 PM EDT Temperature 36.4 ??C (97.5 ??F) 02/16/2025 1:44 PM ED T Respiratory Rate 18 01/15/2025 2:39 PM EST Oxygen Saturation 97% 02/16/2025 1:44 PM EDT Inhaled Oxygen Concentration - - Weight 120 kg (265 lb) 03/18/2025 2:55 PM EDT Height 160 cm (5' 3 ) 03/18/2025 2:55 PM EDT Body Mass Index 46.94 03/18/2025 2:55 PM EDT Plan of Treatment Upcoming Encounters Date Type Department Care Team (Late st Contact Info) Description 03/24/2025 9:15 AM EDT Ancillary Procedure [facility] - [facility] 101 [address] [facility] 101 [place] [phone] 03/31/2025 2:45 PM EDT Office Visit Adult Medicine [address] [phone] Natasha Luna PA [address] [place] [address] 06/17/2025 3:00 PM EDT Office Visit Orthopedic Surgery - [place] [address] [phone] Javi Solorio, DPM [address] [address] 08/24/2025 4:30 PM EDT Office Visit Adult [address] [phone] Jude Davey MD [address] [place] [address] 09/28/2025 10:45 AM EDT Office Visit Nephrology - [address] [phone] Willam Ibarra MD [address] [facility] [address] [place] [phone] Health Maintenance Due Date Last Done Comments Diabetes: Annual Foot Exam 1965 DTaP,Tdap,and Td Vaccines (1 - Tdap) 1974 Pneumococcal Vaccine: 50+ Years (1 of 2 - PCV) 1974 Zoster Vaccines (1 of 2) 2005 RSV Immunization Adult Patients (1 - Risk 60-74 years 1-dose series) 2015 Social Influencers of Health Screening 11/10/2022 COVID-19 Vaccine (3 - 2023-2 5 season) 2024 03/09/2022, 02/28/2021 Diabetes: Blood Sugar Contro l Test (HGBA1C) 08/06/2024 02/04/2024 Depression Screening 10/15/2024 10/15/2023 Medicare Annual Wellness Visit 10/15/2024 10/15/2023 Diabetes: Annual Retina Eye Exam 10/30/2024 10/30/2023 Falls Risk Assessment 04/16/2025 04/16/2024 Diabetes: Annual Urine Albumin-Creatinine Ratio (uACR) 04/20/2025 04/20/2024 Influenza Vaccine (Season Ended) 2025 Diabetes: Annual GFR (Glomerular Filtration Rate) 01/15/2026 [...] age to complete this topic Meningococcal B Vaccine Aged Out No l onger eligible based on patient's age to complete [...] CBC auto differential (01/15/2025 10:15 AM EST) WBC 10.0 4.8 - 10.8 K/mcL LAB HEMETOLOGY METHOD 01/15/2025 10:44 AM EST [facility] RBC 4.50 4.50 - 5.50 M/mcL LAB HEMETOLOGY METHOD 01/15/2025 10:44 AM EST [facility] Hemoglobin 12.7(L) 13.5 - 17.5 g/dL LAB HEMETOLOGY METHOD 01/15/2025 10:44 AM EST [facility] Hematocrit 39.5(L) 42.0 - 54.0 % LAB HEMETOLOGY METHOD 01/15/2025 10:44 AM [facility] MCV 87.4 79.0 - 98.0 FL LAB HEMETOLOGY METHOD 01/15/2025 10:44 AM [facility] MCH 28.1 27.0 - 32.0 pcg LAB HEMETOLOGY METHOD 01/15/2025 10:44 AM [facility] MCHC 32.2 32.0 - 37.0 g/dL LAB HEMETOLOGY METHOD 01/15/2025 10:44 AM [facility] RDW 14.4 11.0 - 15.0 % LAB HEMETOLOGY METHOD 01/15/2025 10:44 AM [facility] Platelets 226 130 - 400 K/mcL LAB HEMETOLOGY METHOD 01/15/2025 10:44 AM [facility] MPV 9.2 7.0 - 11.0 FL LAB HEMETOLOGY METHOD 01/15/2025 10:44 AM [facility] NRBC 0.0 <1.0 % LAB HEMETOLOGY METHOD 01/15/2025 10:44 AM [facility] NRBC Absolute 0.00 <0.10 K/mcL LAB HEMETOLOGY METHOD 01/15/2025 10:44 AM [facility] Neutrophils Relative 61.0 % LAB HEMETOLOGY METHOD 01/15/2025 10:44 AM [facility] Lymphocytes Relative 28.3 % LAB HEMETOLOGY METHOD 01/15/2025 10:44 AM [facility] Monocytes Relative 6.3 % LAB HEMETOLOGY METHOD 01/15/2025 10:44 AM [facility] Eosinophils Relative 3.5 % LAB HEMETOLOGY METHOD 01/15/2025 10:44 AM [facility] Basophils Relative 0.4 % LAB HEMETOLOGY METHOD 01/15/2025 10:44 AM EST [facility] Immature Granulocytes Relative 0.5 % LAB HEMETOLOGY METHOD 01/15/2025 10:44 AM EST [facility] Neutrophils Absolute 6.08 1.50 - 7.00 K/mcL LAB HEMETOLOGY METHOD 01/15/2025 10:44 AM EST [facility] Lymphocytes Absolute 2.82 1.00 - 5.00 K/mcL LAB HEMETOLOGY METHOD 01/15/2025 10:44 AM EST [facility] Monocytes Absolute 0.63 0.20 - 1.00 K/mcL LAB HEMETOLOGY METHOD 01/15/2025 10:44 AM EST [facility] Eosinophils Absolute 0.35 0.00 - 0.50 K/mcL LAB HEMETOLOGY METHOD 01/15/2025 10:44 AM EST [facility] Basophils Absolute 0.04 0.00 - 0.20 K/mcL LAB HEMETOLOGY METHOD 01/15/2025 10:44 AM [facility] Immature Granulocytes Absolute 0.05(H) 0.00 - 0.03 K/mcL LAB HEMETOLOGY METHOD 01/15/2025 10:44 AM [facility] Blood Venous blood specimen / Unknown Venipuncture / Unknown 01/15/2025 10:15 AM EST 01/15/2025 10:29 AM EST us Kamron Julien MD LAB BLOOD ORDERABLES Final Result [facility] [address] [place] [address], * (ABNORMAL) Sedimentation rate (01/15/2025 10:15 AM EST) Sed Rate 50(H) 0 - 20 mm/hr LAB HEMETOLOGY METHOD 01/15/2025 12:56 PM EST [facility] Blood Venous blood specimen / Unknown Venipuncture / Unknown 01/15/2025 10:15 AM EST 01/15/2025 10:29 AM EST Kamron Julien MD LAB BLOOD ORDERABLES Final Result Performing Organization Address [facility]/ZIP Co de Phone Number [facility] [address] [place] [address], [place] [phone] * (ABNORMAL) C-reactive protein (01/15/2025 10:15 AM EST) Pathologist [facility] C-Reactive Protein 0.84(H) <=0.50 mg/dL LAB CHEMISTRY METHOD 01/15/2025 12:17 PM [facility] Blood Venous blood specimen / Unknown Venipuncture / Unknown 01/15/2025 10:15 AM EST 01/15/2025 10:29 AM EST Kamron Julien MD LAB BLOOD ORDERABLES Final Result Performing Organization Address [facility]/ZIP Co de Phone Number [facility] [address] [place] [address], [place] [phone] * (ABNORMAL) Basic metabolic panel (01/15/2025 10:15 AM EST) Pathologist [facility] Sodium 137 133 - 145 mmol/L LAB CHEMISTRY METHOD 01/15/2025 11:02 AM [facility] Potassium 4.8 3.5 - 5.5 mmol/L LAB CHEMISTRY METHOD 01/15/2025 11:02 AM [facility] Chloride 104 96 - 110 mmol/L LAB CHEMISTRY METHOD 01/15/2025 11:02 AM [facility] CO2 26 21 - 32 mmol/L LAB CHEMISTRY METHOD 01/15/2025 11:02 AM [facility] Anion Gap 7 3 - 11 LAB CHEMISTRY METHOD 01/15/2025 11:02 AM [facility] Glucose 201(H) 70 - 100 mg/dL LAB CHEMISTRY METHOD 01/15/2025 11:02 AM [facility] BUN 13 5 - 25 mg/dL LAB CHEMISTRY METHOD 01/15/2025 11:02 AM [facility] Creatinine 1.32(H) 0.70 - 1.30 mg/dL LAB CHEMISTRY METHOD 01/15/2025 11:02 AM [facility] eGFR 58(L) >=60 mL/min/1. 73m2 LAB CHEMISTRY METHOD 01/15/2025 11:02 AM [facility] Comment:Calculation based on the??Chronic Kidney Disease Epidemiology Collaboration (CKD-EPI) equation refit??without adjustment for race. BUN/Creatinine Ratio 9.8 LAB CHEMISTRY METHOD 01/15/2025 11:02 AM [facility] Calcium 9.3 8.5 - 10.5 mg/dL LAB CHEMISTRY METHOD 01/15/2025 11:02 AM [facility] Blood Venous blood specimen / Unknown Venipuncture / Unknown 01/15/2025 10:15 AM EST 01/15/2025 10:29 AM EST Kamron Julien MD LAB BLOOD ORDERABLES Final Result [facility] [address] [place] [address], * Urine Albumin Creatinine Ratio (04/20/2024) Urine Albumin Creatinine Ratio Abstracted Historical Provider HEALTH MAINTENANCE Final Result * Falls Risk Assessment (04/16/2024) Falls Risk Assessment Abstracted Historical Provider HEALTH MAINTENANCE Final Result * (ABNORMAL) Hemoglobin A1c (02/04/2024) Hemoglobin A1C 6.8(A) <=6.5 % Blood Venous blood specimen / Unknown Result [facility] Provider LAB BLOOD ORDERABLES Kristina l Result * (ABNORMAL) Lipid panel (02/04/2024) [facility] LDL/HDL Ratio 4 0 - 4 Triglycerides 187(A) 0 - 150 mg/dL Cholesterol 167 0 - 200 mg/dL HDL 41 >=40 mg/dL LDL Cholesterol 89 0 - 100 mg/dL Blood Venous blood specimen / Unknown Result [facility] Provider LAB BLOOD ORDERABLES Kristina l Result * Colonoscopy (01/06/2024) [facility] Colonoscopy No Interpretation , Abstracted Comment:Postponed until 2024 by Edie Cox (Patient Refused) 11/05/2011 Refused - referred, spoke to GI nurse, declined. Anatomical Region Laterality Modality Other Result [facility] Provider HEALTH MAINTENANCE Final Result * Diabetes Eye Exam (10/30/2023) [facility] Diabetes: Annual Retina Eye Exam Abstracted Result [facility] Provider HEALTH MAINTENANCE Final Result * Depression Screening (10/15/2023) [facility] Depression Screening Abstracted Result [facility] Provider HEALTH MAINTENANCE Final Result * Hepatitis C Screening (12/18/2014) [facility] Hepatitis C Screening Abstracted Result [facility] Provider HEALTH MAINTENANCE Final Result from Last 3 Months or Most Recently Relevant to Health Maintenance Insurance MEDICARE [place]ICAID - [place] [employer] Advance Directives Documents on File Type Date Recorded Patient Teaching Supervisor Expl anation Health Care Decision (hx) 07/31/2022 AD ONEILL DIRECTIVE Health Care Decision (hx) 07/31/2022 AD ONEILL DIRECTIVE Health Care Decision (hx) 07/31/2022 AD ONEILL DIRECTIVE Health Care Decision (hx) 06/10/2017 AD ONEILL DIRECTIVE Health Care Decision (hx) 06/10/2017 AD ONEILL DIRECTIVE Health Care Decision (hx) 06/10/2017 AD ONEILL DIRECTIVE Care Teams Concrete Plant Laborer Relationship Specialty Start Date End Date Jude Davey MD [address] [place] [id number] PCP - General Internal Medicine 10/06/24
--- OUTSIDE RECORDS SUMMARY | 2025-03-19 14:12 | XMS_ITS | Encounter Summary ---
Author Organization [facility] Address [address] [place] [address] Care Team Providers Care Wastewater Project Engineer Name Role Phone Jude Davey MD Primary Care Provider [phone] Reason for Visit * Reason Onset Date Comments FYI 02/24/2025 Encounter Details Date Type Department Care Team ([facility] st Contact Info) Description 02/24/2025 Telephone Adult Medicine [address] [phone] Jude Davey MD [address] [place] [phone] FYI Social History Tobacco Use Types Packs/Day Years [...] on file documented as of this encounter Progress Notes * Tiarra Prince - 02/24/2025 10:52 AM EDT [facility] is calling with some information for provider. Patient has dermatitis and cellulitis. Pt was seen in the ED for Dermatitis and states that it has gotten worst since he stopped takingthe water pills and antibiotics. They just wanted to call and keep the PCP and care team in the loop about pt. documented in this encounter Plan of Treatment Upcoming Encounters Date Type Department Care Team (Late st Contact Info) Description 03/24/2025 9:15 AM EDT Ancillary Procedure [facility] - [facility] 101 [address] [facility] [address] [place] [address] 03/31/2025 2:45 PM EDT Office Visit Adult Medicine [facility] [address] [place] [address] Natasha Luna PA [address] [place], [place] 06/17/2025 3:00 PM EDT Office Visit Orthopedic Surgery - [place] [address] [phone] Javi Solorio, DPM [address] [address] 08/24/2025 4:30 PM EDT Office Visit Adult Medicine [address] [phone] Jude Davey MD [address] [place] [address] 09/28/2025 10:45 AM EDT [facility] [address] [place] [address] Willam Ibarra MD [address] [facility] [address] [place] [phone] documented as of this encounter Visit Diagnoses Not on filedocumented in this encounter Care Teams Wastewater Project Engineer Relationship Specialty Start Date End Date Jude Davey MD [address] [place] [address] PCP - General Internal Medicine 10/06/24 documented as of this encounter
--- OUTSIDE RECORDS SUMMARY | 2025-03-19 14:12 | XMS_ITS | Encounter Summary ---
Author Organization [facility] Address [address] [place] [address] Care Team Providers Care Communication Equipment Repairer Name Role Phone Jude Davey MD Primary Care Provider [phone] Encounter Details Date Type Department Care Team (Late st Contact Info) Description 03/18/2025 3:00 PM EDT Office Visit Orthopedic Surgery - [place] [id number] [phone] Javi Solorio, DPM [address] [address] Gout of foot, unspecified cause, unspecified chronicity, unspecified laterality (Primary Dx); Dermatophytosis of nail; Pain in toe of left foot; Pain in toe of right foot; Diabetic mononeuropathy simplex ([facility] V24, [facility] V28); Type II diabetes mellitus with peripheral circulatory disorder ([facility] V24, [facility] V28) Social History Tobacco Use Types Packs/Day Years [...] - Inhaled Oxygen Concentration - - Weight 120 kg (265 lb) 03/18/2025 2:55 PM EDT Height 160 cm (5' 3 ) 03/18/2025 2:55 PM EDT Body Mass Index 46.94 03/18/2025 2:55 PM EDT documented in this encounter Progress Notes * Javi Solorio DPM - 03/18/2025 3:00 PM EDT Last MD visit: 02/16/25 Bethany PHOEN[place] S Patient presents today for evaluation of his feet he did see dermatology for his rash she states the rash has improved somewhat has been using topical medications reports he is got a recent flare of his legs and feet he states he gets gout in both feet and states can throbbing achy pain in the balls of his feet states it somewhat intense and is a 5 out of 10 visual analog scale Notes his nails elongated painful thickened ROS: GENERAL: Pt denies nausea, fever, vomiting, [...] with BMI of 40.0-44.9, adult ([facility]) E66.01, Z68.41 History of traumatic brain injury Z87.820 PPD positive, treated R76.11 Type II diabetes mellitus with renal manifestations ([facility]) E11.29 Benign essential hypertension I10 Shortness [...] current facility-administered medications for this visit. ALLERGIES: [place] oil and Seasonal allergies PHYSICAL EXAM: Height [...] DERMATOLOGICAL:. Blanchable redness to left lower extremity with a rash lipodermatosclerosis mid leg Toenails: Left Toenail(s) 1-5: subungual debris, discoloration, hypertrophic, elongation, mycotic appearance, onychomycosis, pain and thickening. Right Toenail(s) 1-5: subungual debris, discoloration, hypertrophic, elongation, mycotic appearance, onychomycosis, pain and thickening. BIOMECHANICS: STJ ROM wnl, MTJ ROM wnl, 1st MPJ ROM limited bilaterally swelling irritation inflammation of both great toe joints. Worsening hammertoe of the left fifth digit with worsening pain on palpation callus remission dorsal lateral with significant nail atrophy and callus formation intra nail subungual IMAGING: N/A IMPRESSION: 1. Gout of foot, unspecified cause, unspecified chronicity, unspecified laterality 2. Dermatophytosis of nail 3. Pain in toe of left foot 4. Pain in toe of right foot 5. Diabetic mononeuropathy simplex (CMS/HCC V24, CMS/[facility] V28) 6. Type II diabetes mellitus with peripheral circulatory disorder (CMS/HCC V24, CMS/HCC V28) PLAN: Treatment options for gout of both feet were discussed and reviewed Steroid injections offered patient declined Topical Voltaren gel and oral anti-inflammatories recommended ibuprofen Patient continues have severe lipodermatosclerosis and dermatitis of left lower extremity Will defer further treatment to dermatology Discussed with patient regarding proper glucose control, exercise, and diet. Explained to patient proper shoe gear, and importance of daily foot checks. I reviewed neuropathy and why it occurs in diabetics. I educated the patient on proper blood sugar control and the importance of an HgBA1c of less than 7.0%. I reviewed the signs and symptoms of neuropathy with the patient Pt to return for another evaluation in 3 months. Debridement of mycotic toenails 6-10: Verbal informed consent was obtained from the patient. Greater than 6 nails were aseptically debrided in thickness and length with nail nippers Javi Solorio DPM documented in this encounter Plan of Treatment Upcoming Encounters Date Type Department Care Team (Late st Contact Info) Description 03/24/2025 9:15 AM EDT Ancillary Procedure [facility] [address] [phone] 03/31/2025 2:45 PM EDT Office Visit Adult Medicine [address] [phone] Natasha Luna PA [address] [place] [address] 06/17/2025 3:00 PM EDT Office Visit Orthopedic Surgery - [place] [address] [phone] Javi Solorio DPM [address] [address] 08/24/2025 4:30 PM EDT Office Visit Adult Medicine [address] [phone] Jude Davey MD [address] [place] [address] 09/28/2025 10:45 AM EDT Office Visit Nephrology - [address] [phone] Willam Ibarra MD [address] [phone] documented as of this encounter Visit Diagnoses Diagnosis Gout of foot, unspecified cause, unspecified chronicity, unspecified laterality- Primary Dermatophytosis of nail Pain in toe of left foot Pain in soft tissues of limb Pain in toe of right foot Pain in soft tissues of limb Diabetic mononeuropathy simplex ([facility] V24, [facility] V28) Type II or unspecified type diabetes mellitus with neurological manifestations, not stated as uncontrolled Type II diabetes mellitus with peripheral circulatory disorder ([facility] V24, [facility] V28) Type II or unspecified type diabetes mellitus with peripheral circulatory disorders, not stated as uncontrolled documented in this encounter Care Teams Communication Equipment Repairer Relationship Specialty Start Date End Date Jude Davey MD [address] [place] [address] PCP - General Internal Medicine 10/06/24 documented as of this encounter
[2025-03-19 14:13] VITALS: BP 118/48; PULSE 74; RESP 16; TEMP 36.8; O2SAT 96; BMI 43.0
== END 2025-03-19 14:38 | disposition home or self-care (01) ==
PROVIDERS: PCP Internal Medicine; Visit Provider Physician Assistant
DX: J06.9 Acute upper respiratory infection, unspecified (principal)

== ENCOUNTER 2025-07-06 12:55 | Outpatient (AMB) | payer MEDICARE, MEDICAID, SELFPAY ==
--- NOTE | 2025-07-06 13:02 | AM.OFFWIN_ITS ---
Intake Vital Signs 07/06/25 13:08 Height 5 ft 3 in Weight 227 lb BMI 40.2 BP 122/58 L Blood Pressure Location Lt brachial Position Sitting Pulse 67 Pulse Source Pulse Oximeter Temp 98.3 F Temp Source Oral Pulse Oximetry (%) 97 Oxygen Delivery Method Room Air Intake Visit Reasons: EP-lt leg rash Intake Note: presents with slow healing wound on left greene for 3 days s/p scratching a rash Patient Tobacco Use Status: Never used Tobacco Allergies olive extract (OLIVE) Allergy (Unknown, Verified 07/06/25 13:12) SWELLING OF TONGUE Medication List - Last Reconciled 07/06/25 by Kiera Ca MD atorvastatin 10 mg PO DAILY betamethasone dipropionate 0.05% topical PRN blood sugar diagnostic (FreeStyle Lite Strips) As directed fluticasone propionate 50 mcg/actuation sprays intranasal DAILY PRN glipizide ER 10 mg PO BID lancets (FreeStyle Lancets) As directed lisinopril 30 mg PO DAILY metformin 1,000 mg PO BID omeprazole 20 mg PO DAILY Do you need a note to return to daycare/school/sports/work: No HPI EP-lt leg rash HPI Details Medical History - Type II Diabetes Mellitus - Hypercholesterolemia - Hypertension History of Present Illness - The patient is a 69 year old male pres enting with a rash on the left lower leg. The condition has been persistent for nearly six months. - The rash was initially located lower t owards the ankle and has been described as non-itchy, with a burning sensation. - The patient noted that the blister on the rash opened up after wiping himself with a towel, which caused an opening in the skin. - The patient has used a topical cream, betamethasone which was prescribed by his previous PCP, intermittently over the past four to five months. It has only been minimally effective. - No known itchiness, but consistent rep orts of burning sensations in the affec bonnie area. Medications: - Lisinopril 30 mg (for Hypertension) - Metformin (for Diabetes Mellitus) - Omeprazole (symptomatic management of presumed gastroesophageal reflux disease) - Previous unspecified cholesterol medic ation (not currently being taken due to absence of a renewed prescription) Social History: - Reports challenges with accessing [facility] medical care leading to changing clinics - Difficulty obtaining refills for medic ations from the pharmacy - Plans to see a new PCP in August medication review and possible insulin therapy discussion Problem List - Rash on left lower leg/cellulitis - Type II Diabetes Mellitus - Hypertension - Hypercholesterolemia Patient Instructions - You will be prescribed Augmentin (amox icillin/clavulanate). Take one tablet every 12 hours for 10 days. If the rash improves significantly by day seven, you can stop the medication. - Start the medication at 8:00 PM, then continue taking it at 8:00 AM and 8:00 PM daily. - Check back with your primary care prov ider regarding your cholesterol medication before making any changes. Review of Systems - General: No fever no chills - Neurological: No headaches no dizziness - Ear nose throat: No sore throat no hearing difficulty no ear pain - Cardiovascular: No syncope, no chest pain, no palpitations - Gastrointestinal: No nausea vomiting or diarrhea Physical Exam General: No acute distress HEENT: No acute findings Neck: Supple Respiratory system: Able to talk in full sentences Cardiovascular: S1-S2 regular in rate and rhythm Extremities: Patch of inflammation on left lower leg, size of about 5 in x 7 in, with open skin area but no discharge PATIENT SERVICE SPECIALIST: Alert awake oriented x3 motor intact PFSH Social History Patient Tobacco Use Status: Never used Tobacco Physical Exam Vital Signs: Last Vital Signs Temp 98.3 F 07/06/25 13:08 Pulse 67 07/06/25 13:08 BP 122/58 L 07/06/25 13:08 Pulse Ox 97 07/06/25 13:08 Oxygen Delivery Method Room Air 07/06/25 13:08 BMI result Body Mass Index 40.2 Assessment & Plan Assessment & Plan (1) Cellulitis of left leg: Code(s): L03.116 - Cellulitis of left lower limb (2) Type 2 diabetes mellitus: Code(s): E11.9 - Type 2 diabetes mellitus without complications Qualifiers: Diabetes mellitus intermediate manager insulin use: without intermediate manager use Diabetes mellitus complication status: with other specified complication Qualified Code(s): E11.69 - Type 2 diabetes mellitus with other specified complication (3) Lipid disorder: Code(s): E78.9 - Disorder of lipoprotein metabolism, unspecified (4) Obesity due to excess calories: Code(s): E66.09 - Other obesity due to excess calories Qualifiers: Obesity classification: adult class 3 (BMI >= 40) Serious obesity comorbidity presence: with serious comorbidity Body mass index: BMI 40.0-44.9 Qualified Code(s): E66.813 - Obesity, class 3; Z68.41 - Body mass index [BMI] 4 0.0-44.9, adult (5) Hypertension, essential: Code(s): I10 - Essential (primary) hypertension Plan Medical History - Type II Diabetes Mellitus - Hypercholesterolemia - Hypertension - morbid obesity History of Present Illness - The patient is a 69 year old male presenting with a rash on the left lower l eg. The condition has been persistent for nearly six months. - The rash was initially located lower towards the ankle and has been described as non-itchy, with a burning sensation. - The patient noted that the blister on the rash opened up after wiping himself with a towel, which caused an opening in the skin. - The patient has used a topical cream, betamethasone which was prescribed by his previous PCP, intermittently over the past four to five months. It has only been minimally effective. - No known itchiness, but consistent reports of burning sensations in the affected area. Medications: - Lisinopril 30 mg (for Hypertension) - Metformin (for Diabetes Mellitus) - Omeprazole (symptomatic management of presumed gastroesophageal reflux disease) - Previous unspecified cholesterol medication (not currently being taken due to absence of a renewed prescription) Social History: - Reports challenges with accessing prior medical care leading to changing clinics - Difficulty obtaining refills for medications from the pharmacy - Plans to see a new PCP in August for medication review and possible insulin therapy discussion Problem List - Rash on left lower leg/cellulitis - Type II Diabetes Mellitus - Hypertension - Hypercholesterolemia - morbid obesity Patient Instructions - You will be prescribed Augmentin (amoxicillin/clavulanate). Take one tablet every 12 hours for 10 days. If the rash improves significantly by day seven, you can stop the medication. - Start the medication at 8:00 PM, then continue taking it at 8:00 AM and 8:00 PM daily. - Check back with your primary care provider regarding your cholesterol medication before making any changes. Medications: New amoxicillin-pot clavulanate 500-125 mg 1 tab PO Q12H 20 tabs 0RF 10 days Coding Level of Care Code Est Pt Level 4 (97179) Diagnoses Cellulitis of left leg L03.116 Type 2 diabetes mellitus with other specified complication, without long-term current use of insulin E11.69 Diabetes mellitus penitentiary insulin use: without penitentiary use Diabetes mellitus complication status: with other specified complication Lipid disorder E78.9 Class 3 severe obesity due to excess calories with serious comorbidity and body mass index (BMI) of 40.0 to 44.9 in adult E66.813; Z68.41 Obesity classification: adult class 3 (BMI >= 40) Serious obesity comorbidity presence: with serious comorbidity Body mass index: BMI 40.0-44.9 Hypertension, essential I10
[2025-07-06 13:08] VITALS: BP 122/58; PULSE 67; TEMP 36.8; O2SAT 97; BMI 40.2
--- OUTSIDE RECORDS SUMMARY | 2025-07-06 13:30 | XMS_ITS | Clinical Summary ---
Author Organization [facility] [address] [place] [address] [place] [address] CRYSTAL Elias [phone] Phone Care Team Providers Care Journeyman Electrician Name Role Phone Jude Davey MD Primary Care Provider [phone] Allergies Active Allergy Reactions Criticality Noted Date Comments [place] Oil 07/03/2010 Olives - tongue swells Other [...] total) by mouth at bedtime. 4 Active empagliflozin (Jardiance) 10 mg tablet Take 1 tablet (10 mg total) by mouth 1 (one) time each day. 4 Active glipiZIDE (GLUCOTROL XL) 10 mg 24 hr tablet Take 1 tablet (10 mg total) by mouth 2 (two) times a day. 4 Active amoxicillin-cla vulanate (Augmentin) 875-125 mg per tablet Take 1 tablet by mouth 2 (two) times a day. 20 tablet 5 Active metFORMIN (GLUCOPHAGE) 1,000 mg tablet TAKE 1 TABLET BY MOUTH TWICE A DAY WITH MEALS 180 tablet 1 5 Active blood sugar diagnostic (FreeStyle Lite Strips) test strip Use to check blood sugar once daily. 100 each 1 5 Active freestyle (FreeStyle Lancets) 28 gauge lancets Use to check blood sugar once daily. 100 each 5 Active lisinopriL (PRINIVIL,ZESTR IL) 30 mg tablet Take 1 tablet (30 mg total) by mouth 1 (one) time each day. 90 tablet 1 5 Active omeprazole (PriLOSEC) [address] capsule Take 1 capsule (20 mg total) by mouth 1 (one) time each day. Active diclofenac (VOLTAREN) 1 % topical gel Apply 4 g topically 4 (four) times a day. 100 g 1 5 Active Additional Information Patient not taking.Reported on 05/24/2025 hydroCHLOROthia zide 12.5 mg tablet Take 1 tablet (12.5 mg total) by mouth 1 (one) time each day. 30 each 1 5 Active Active Problems Problem Noted Date Diagnosed Date Morbid obesity with BMI of 4 0.0-44.9, adult ([facility] V24, [facility] V28) 09/30/2024 BPH (benign prostatic hyperplasia) 04/02/2024 Microalbuminuria 09/13/2022 Hypertriglyceridemia 09/11/2022 Stage 3a chronic kidney disease ([facility] V24, [facility] V28) 10/25/2021 Nocturnal hypoxemia 04/18/2021 PLMD (periodic limb movement disorder) 9 Obstructive sleep apnea 04/05/2019 Overview (09/30/2024): [facility] Home Polysomnogram: Date 03/30/2019; Wt 240#; BMI 43; MOOSE 22, AI 5; HI 17; Unclassified apneas 26; Obstructive apneas 12; Central apneas 7; Mixed apneas 1; hypopneas 170; average oxygen saturation 93% (lowest 68% with saturations <88% for 5% or more of study) [facility] Polysomnogram: Date 06/08/2019; Wt 240#; BMI 34; SE 63%; SM 75%; REM 25%; RDI 28 (AHI 24), REM (RDI 67 - AHI 66), Central apneas 0; Obstructive apneas 0; Mixed apneas 0; hypopneas 99; RERAs 19; average oxygen saturation 92% (lowest 71% - with saturations <88% for 5% or more of study); PLMs 51.- 06/08/2019 Prestudy ESS 5; 0/4 RLS symptoms. [facility] Polysomnogram treatment study. Date [...] suggested. Pre-study ESS 3. 0/4 RLS symptoms. 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 Should not get rpt PPD GERD (gastroesophageal reflux disease) 3 Gout 02/05/2013 Memory loss 01/30/2007 Encounters Date Type Department Care Team Description 06/17/2025 3:00 PM EDT Office Visit Orthopedic Surgery - [place] [address] [place] [phone] Javi Solorio, DPM Gout of foot, unspecified cause, unspecified chronicity, unspecified laterality (Primary Dx); Dermatophytosis of nail; Acquired hallux valgus of left foot; Acquired hallux valgus of right foot; Peripheral venous insufficiency; Pain in toe of left foot; Pain in toe of right foot; Type II diabetes mellitus with peripheral circulatory disorder ([facility] V24, [facility] V28); Diabetic mononeuropathy simplex ([facility] V24, [facility] V28); Dermatitis 05/24/2025 1:00 PM EDT Office Visit Vascular Surgery - [place] [address] [place] [phone] Alma Cruz PA Leg swelling (Primary Dx) from Last 3 Months Immunizations Name Administration Dates Next Due [employer] SARS-CoV-2 COVID -19, vector-nr, rS-Ad26, preservative free [...] DX:History of traumatic brain injury Morbid obesity ([facility] V24, [facility] V28) 11/10/2014 DX:Morbid obesity (HCC); COM MENT: BMI 42.74 on 02/04/2013 GERD [...] Date Smoking Tobacco: Never Smokeless Tobacco: Never Tobacco Cessation:Counseling Given: Not Answered Alcohol Use Standard Drinks/Week Comments No 0 (1 standard drink = 0.6 oz pur e alcohol) Sex and Gender Information Value Date Recorded Sex Assigned at Not on file Legal Sex Male 3:07 AM EST Gender Identity Not on file Sexual Orientation Not on file Obstetrics History Last Filed Vital Signs Vital Sign Reading Time Taken Comments Blood Pressure 136/71 05/24/2025 12:56 PM EDT Pulse 58 05/24/2025 12:56 PM EDT Temperature 36.5 C (97.7 F) 03/31/2025 2:41 PM EDT Respiratory Rate 18 01/15/2025 2:39 PM EST Oxygen Saturation 97% 03/31/2025 2:41 PM EDT Inhaled Oxygen Concentration - - Weight 108 kg (237 lb) 05/24/2025 12:56 PM EDT Height 162.6 cm (5' 4 ) 05/24/2025 12:56 PM EDT Body Mass Index 40.68 05/24/2025 12:56 PM EDT Plan of Treatment Upcoming Encounters Date Type Department Care Team (Late st Contact Info) Description 09/20/2025 2:45 PM EDT Office Visit Orthopedic Surgery - [place] [address] [phone] Javi Solorio DPM [address] [address] 09/28/2025 10:45 AM EDT [facility] [address] [facility] [place] [address] Willam Ibarra MD [address] [phone] Health Maintenance Due Date Last Done Comments Diabetes: Annual Foot Exam 1965 DTaP,Tdap,and Td Vaccines (1 - Tdap) 1974 Pneumococcal Vaccine: 50+ Years (1 of 2 - PCV) 1974 Zoster Vaccines (1 of 2) 1974 RSV Immunization Adult Patients (1 - Risk 60-74 years 1-dose series) 2015 Social Influencers of Health Screening 11/10/2022 COVID-19 Vaccine (3 - 2023-2 5 season) 2024 03/09/2022, 02/28/2021 Medicare Annual Wellness Visit 10/15/2024 10/15/2023 Diabetes: Annual Retina Eye Exam 10/30/2024 10/30/2023 Depression Screening 12/02/2024 10/15/2023 Falls Risk Assessment 04/16/2025 04/16/2024 Diabetes: Annual Urine Albumin-Creatinine Ratio (uACR) 04/20/2025 04/20/2024 Influenza Vaccine (#1) 2025 Diabetes: Blood Sugar Contro l Test (HGBA1C) 09/30/2025 03/31/2025, 02/04/2024 Diabetes: Annual GFR (Glomerular Filtration Rate) 01/15/2026 [...] Procedure Name Priority Date/Time Associated Diagnosis Comments HEMOGLOBIN A1C Routine 03/31/2025 3:41 PM EDT Type 2 diabetes mellitus with stage 3a chronic kidney disease, without long-term current use of insulin ([facility] V24, [facility] V28) BASIC METABOLIC PANEL STAT 01/15/2025 10:15 AM EST URINE ALBUMIN CREATININE RATIO Routine 04/20/2024 FALLS RISK ASSESSMENT Routine 04/16/2024 LIPID PANEL Routine 02/04/2024 COLONOSCOPY Routine 01/06/2024 DIABETES EYE EXAM Routine 10/30/2023 DEPRESSION SCREENING Routine 10/15/2023 HEPATITIS C SCREENING Routine 12/18/2014 from Last 3 Months or Most Recently Relevant to Health Maintenance Results * (ABNORMAL) Hemoglobin A1c (03/31/2025 3:41 PM EDT) Hemoglobin A1C 7.3(H) <6.5 % LAB CHEMISTRY METHOD 04/01/2025 9:48 AM EDT [facility] Mean Bld Glu Estim. 163 mg/dL LAB CHEMISTRY METHOD 04/01/2025 9:48 AM EDT [facility] Blood Venous blood specimen / Unknown Venipuncture / Unknown 03/31/2025 3:41 PM EDT 03/31/2025 3:41 PM EDT Natasha SHORE LAB BLOOD ORDERABLES Fi nal Result [facility] [address] [place] [address], [place] [phone] * (ABNORMAL) Basic metabolic panel (01/15/2025 10:15 AM EST) [facility] Sodium 137 133 - 145 mmol/L LAB CHEMISTRY METHOD 01/15/2025 11:02 AM [facility] Potassium 4.8 3.5 - 5.5 mmol/L LAB CHEMISTRY METHOD 01/15/2025 11:02 AM [facility] Chloride 104 96 - 110 mmol/L LAB CHEMISTRY METHOD 01/15/2025 11:02 AM [facility] CO2 26 21 - 32 mmol/L LAB CHEMISTRY METHOD 01/15/2025 11:02 AM [facility] Anion Gap 7 3 - 11 LAB CHEMISTRY METHOD 01/15/2025 11:02 AM [facility] Glucose 201(H) 70 - 100 mg/dL LAB CHEMISTRY METHOD 01/15/2025 11:02 AM [facility] BUN 13 5 - 25 mg/dL LAB CHEMISTRY METHOD 01/15/2025 11:02 AM [facility] Creatinine 1.32(H) 0.70 - 1.30 mg/dL LAB CHEMISTRY METHOD 01/15/2025 11:02 AM [facility] eGFR 58(L) >=60 mL/min/1. 73m2 LAB CHEMISTRY METHOD 01/15/2025 11:02 AM [facility] Comment:Calculation based on the Chronic Kidney Disease Epidemiology Collaboration (CKD-EPI) equation refit without adjustment for race. BUN/Creatinine Ratio 9.8 LAB CHEMISTRY METHOD 01/15/2025 11:02 AM EST [facility] Calcium 9.3 8.5 - 10.5 mg/dL LAB CHEMISTRY METHOD 01/15/2025 11:02 AM EST [facility] Blood Venous blood specimen / Unknown Venipuncture / Unknown 01/15/2025 10:15 AM EST 01/15/2025 10:29 AM EST Result [facility] Kamron Julien MD LAB BLOOD ORDERABLES Final Result [facility] [address] [place] [address], [place] [phone] * Urine Albumin Creatinine Ratio (04/20/2024) [facility] Urine Albumin Creatinine Ratio Abstracted Result [facility] Provider HEALTH MAINTENANCE Final Result * Falls Risk Assessment (04/16/2024) [facility] Falls Risk Assessment Abstracted Result [facility] Provider HEALTH MAINTENANCE Final Result * (ABNORMAL) Lipid panel (02/04/2024) [facility] LDL/HDL Ratio 4 0 - 4 Triglycerides 187(A) 0 - 150 mg/dL Cholesterol 167 0 - 200 mg/dL HDL 41 >=40 mg/dL LDL Cholesterol 89 0 - 100 mg/dL Blood Venous blood specimen / Unknown Result [facility] Provider LAB BLOOD ORDERABLES Kristina l Result * Colonoscopy (01/06/2024) [facility] Colonoscopy No Interpretation , Abstracted Comment:Postponed until 2024 by Edie Cox (Patient Refused) 11/05/2011 Refused - referred, spoke to GI nurse, declined. Anatomical Region Laterality Modality Other Result [facility] Provider HEALTH MAINTENANCE Final Result * Diabetes Eye Exam (10/30/2023) [facility] Diabetes: Annual Retina Eye Exam Abstracted us Historical Provider HEALTH MAINTENANCE Final Result * Depression Screening (10/15/2023) Depression Screening Abstracted Historical Provider HEALTH MAINTENANCE Final Result * Hepatitis C Screening (12/18/2014) Hepatitis C Screening Abstracted Historical Provider HEALTH MAINTENANCE Final Result from Last 3 Months or Most Recently Relevant to [place] [address] MEDICARE [place] - [place] [employer] Advance Directives Documents on File Type Date Recorded Patient Data Transcriber Expl anation Health Care Decision (hx) 07/31/2022 AD ONEILL DIRECTIVE Health Care Decision (hx) 07/31/2022 AD ONEILL DIRECTIVE Health Care Decision (hx) 07/31/2022 AD ONEILL DIRECTIVE Health Care Decision (hx) 06/10/2017 AD ONEILL DIRECTIVE Health Care Decision (hx) 06/10/2017 AD ONEILL DIRECTIVE Health Care Decision (hx) 06/10/2017 AD ONEILL DIRECTIVE Care Teams Journeyman Electrician Relationship Specialty Start Date End Date Jude Davey MD [address] [place] [phone] PCP - General Internal Medicine 10/06/24
--- OUTSIDE RECORDS SUMMARY | 2025-07-06 13:30 | XMS_ITS | Encounter Summary ---
Author Organization [facility] Address [address] [facility] [address] [place] [phone] Phone Care Team Providers Care Chucking Machine Set Up Operator Tool Name Role Phone Jude Davey MD Primary Care Provider + Encounter Details Date Type Department Care Team (Late st Contact Info) Description 02/06/2023 Procedure Pass OR Admitting Dept - Virtual Department [address] [place], [place] [id number] Social History Tobacco Use Types Packs/Day Years Used Date Smoking Tobacco: Never Smokeless Tobacco: Never Alcohol Use Standard Drinks/Week Comments Not Currently 0 (1 standard drink = 0.6 oz pur e alcohol) rare beer Intimate Partner Violence Answer Date R ecorded Are you denied basic needs s uch as food, clothing, or medical care? No 02/06/2023 In the past 12 months have y ou been in a relationship with a person who hurts, threatens, or tries to control you? No 02/06/2023 Are you denied basic needs s uch as food, clothing, or medical care? No 02/06/2023 In the past 12 months have y ou been in a relationship with a person who hurts, threatens, or tries to control you? No 02/06/2023 Sex and Gender Information Value Date Recorded Sex Assigned at Not on file Legal Sex Male 12:04 PM EST Gender Identity Not on file Sexual Orientation Not on file documented as of this encounter Functional Status * Calculated C-SSRS Risk Score (Lifetime/Recent) Answer Date of Assessment Author No Risk Indicated 02/06/2023 2:00 PM Francisca March RN * [place] Suicide Severity Rating Scale (Screener/Recent Self-Report) Question Answer Date of Assessment Author 1. Wish to be (Past 1 Month) No 023 2:00 PM Francisca March RN 2. Non-Specific Active Suici matthew Thoughts (Past 1 Month) No 02/06/2023 2:00 PM Francisca March RN 6. Suicidal Behavior (Lifetime) No 2:00 PM Francisca March RN documented as of this encounter Plan of Treatment Not on file documented as of this encounter Visit Diagnoses Not on filedocumented in this encounter Care Teams Chucking Machine Set Up Operator Tool Relationship Specialty Start Date End Date Jude Davey MD [address] [place] [phone] PCP - General Internal Medicine 01/24/23 documented as of this encounter Additional Source Comments The information contained in this document represents components of the legal health record. It is not the complete legal health record.[facility]
== END 2025-07-06 13:36 | disposition home or self-care (01) ==
PROVIDERS: PCP Internal Medicine; Visit Provider Internal Medicine
DX: L03.116 Cellulitis of left lower limb (principal); E11.69 Type 2 diabetes mellitus with other specified complication; E78.9 Disorder of lipoprotein metabolism, unspecified; E66.813 Obesity, class 3; Z68.41 Body mass index [BMI] 40.0-44.9, adult; I10 Essential (primary) hypertension

== ENCOUNTER → 2025-07-06 12:55 | Outpatient (BNVA) | payer MEDICARE, MEDICAID, SELFPAY | PROVIDERS: PCP Internal Medicine; Visit Provider Internal Medicine | DX: L03.116 Cellulitis of left lower limb (principal); E11.69 Type 2 diabetes mellitus with other specified complication; E78.9 Disorder of lipoprotein metabolism, unspecified; E66.813 Obesity, class 3; Z68.41 Body mass index [BMI] 40.0-44.9, adult; I10 Essential (primary) hypertension; Z71.3 Dietary counseling and surveillance | CPT/HCPCS: 99212 ==